=== PATIENT | female | born 1960 | race Caucasian/White ===

== ENCOUNTER → 2019-11-30 08:15 | Outpatient (CLI) | payer OTHER, SELFPAY ==
--- NOTE | ~2019-11-30 | DEXA_ITS ---
Bone Density Report Name: Denia Olson Age: 59 Sex: Female Ethnicity: White Date of : 1960 Indication: postmenopausal; screening for osteoporosis; hysterectomy; Referring Provider: NELLA PAPPAS Study: Bone densitometry was performed. Exam Date: November 30, 2019 Accession number: [id number] Bone Density: Region BMD T-score Z-score Classification AP Spine (L1-L4) 1.204 1.4 2.9 Normal Femoral Neck (Left) 0.866 0.2 1.5 Normal Total Hip (Left) 0.944 0.0 1.0 Normal Femoral Neck (Right) 0.834 -0.1 1.2 Normal Total Hip (Right) 0.940 0.0 1.0 Normal Total Hip Mean 0.942 0.0 1.0 Normal World Health Organization criteria for BMD impression classify patients as: Normal (T-score at or above -1.0), Osteopenia (T-score between -1.0 and -2.5), or Osteoporosis (T-score at or below -2.5). 10-year Fracture Risk: FRAX not reported because: All T-scores for Spine Total, Hip Total, Femoral Neck at or above -1.0 Clinical Information Provided by Patient: Has used the following medications: Vitamin D Has the following medical conditions: Hysterectomy Patient maximum height was 65 Menopause Age: 41 No regular weight bearing exercise Drinks caffeinated beverages Onset of menses at age 11 Number of children 2 Impression: The patient has normal bone mass. Discussion: BONE DENSITY IS ABOVE THE MINIMUM DESIRABLE LEVEL AT ALL SKELETAL SITES TESTED. This patient?s bone mineral density is above the minimum desirable level (T-score -1.0 or better) at all sites measured. The patient should follow a healthful lifestyle (good nutrition with adequate calcium and vitamin D, and appropriate weight-bearing exercise). Follow-Up: Consider repeating this study in 5 years or sooner if there is some new clinical indication. Reported by: NORMAN on 11/30/2019 8:53:00 AM. Reviewed, dictated and finalized at location AJose Raul BRANDON
--- NOTE | ~2019-11-30 | US_ITS ---
US abdomen complete DATE: 11/30/2019 08:40 INDICATION: Liver disease, renal disease TECHNIQUE: Real time imaging of the complete abdomen COMPARISON: None FINDINGS: There is hepatic steatosis. There is limited visualization of the pancreas due to interfer ence from bowel gas. No hepatic space-occupying mass lesion is evident. Normal hepatic portal venous flow direction. The gallbladder is surgically absent. The common bile duct measures 4 mm, within normal limits. The right kidney measures 10.5 cm approximate length, the left kidney approximately 9 cm length. No r enal mass lesion or hydronephrosis. Splenomegaly. The abdominal aorta and inferior vena cava appear unremarkable where visible. IMPRESSION: Hepatic steatosis Splenomegaly Reviewed, dictated and finalized at Location A. Reviewed, dictated and finalized at location B.
== END ==
PROVIDERS: PCP Emergency Medicine; Visit Provider Emergency Medicine
DX: Z78.0 Asymptomatic menopausal state (principal); K76.0 Fatty (change of) liver, not elsewhere classified
CPT/HCPCS: 76700; 77080

== ENCOUNTER 2023-04-07 10:42 | Inpatient (IN) | payer BC, SELFPAY ==
[2023-04-07] VITALS (31 sets, daily range): BP systolic 102–139; BP diastolic 63–89; PULSE 81–147; RESP 11–21; TEMP 36.4–37.1; O2SAT 96–100; BMI 32.3
--- NOTE | ~2023-04-07 | XR_ITS ---
Portable chest x-ray Comparison: None Clinical History: Tachycardia Findings: Lungs are clear, without focal consolidation or pleural effusion. Cardiomediastinal silho uette is unremarkable. Bones and soft tissues are unremarkable. Impression: Normal chest. Reviewed, dictated and finalized at location . Impression: Normal chest.
--- NOTE | 2023-04-07 10:44 | ECG_ITS ---
Measurements Intervals [place] Rate: 126 P: [place]: 0 QRS: -19 QRSD: 89 T: 25 QT: 287 QTc: 416 Interpretive Statements ATRIAL FIBRILLATION WITH RAPID VENTRICULAR RESPONSE BORDERLINE R WAVE PROGRESSION, ANTERIOR LEADS ABNORMAL ECG NO PREVIOUS ECG AVAILABLE FOR COMPARISON Electronically Signed On 04-07-2023 12:16:08 CDT by Buzz Escobedo D.O.
--- NOTE | 2023-04-07 11:05 | ED.GENADULT ---
HPI - General Adult General Chief complaint: Recheck/Abnormal Lab/Rx Stated complaint: abnormal EKG Time Seen by Provider: 04/07/23 11:04 Source: patient and family Limitations: no limitations History of Present Illness HPI narrative: 62 years old white female went to her family physician today for regular checkup, asymptomatic, found to have A-fib with RVR. Referred to the emergency room for further evaluation. Patient denies any lightheadedness, headache, shortness of breath, chest pain, back pain, palpitation. History of diabetes, hypertension, hyperlipidemia, brain bleed 5 years ago, does not smoke or drink or uses drugs. Related Data Allergies Allergy/AdvReac Type Severity Reaction Status Date / Time No Known Allergies Allergy Verified 04/07/23 10:43 Review of Systems Review of Systems: All systems reviewed & are unremarkable except as noted in HPI and below PMFSH Past Medical History Medical History Anxiety with depression Chronic GERD Diabetes Hemorrhagic stroke Hyperlipidemia Hypertension Surgical History Surgical History H/O: hysterectomy Hx of cholecystectomy Family History Family History Other Diabetes mellitus Heart disease Hypertension Lung cancer Social History Social History Social History: lives with and has 2 children. retired from commercial ins full code Exam Narrative: General appearance: Well-developed, well-nourished Skin: Normal color Head: Normocephalic, nontraumatic Eyes: Clear conjunctiva ENT: Oropharynx normal, ears normal, nose normal Neck: Supple, nontender Chest and respiratory: Airway patent, no respiratory distress, no accessory muscle use Heart: Tachycardia, irregular irregularity Abdomen: Soft, nontender, no organomegaly, quiet bowel sounds Vascular: Normal peripheral pulses, normal capillary refill. Musculoskeletal: Normal range of motion, nontender back Neurologic: Alert and oriented ?3, [employer] is normal as tested, no gross motor deficit Course Reevaluation(s) Reevaluation #1: Patient still asymptomatic, denied any new symptoms compared to on arrival to the ED Date: 04/07/23 Time: 16:08 Vital Signs Vital signs: Vital Signs Temperature 36.6 C 04/07/23 10:44 Pulse Rate 123 H 04/07/23 10:44 Respiratory Rate 20 04/07/23 10:44 Blood Pressure 137/78 04/07/23 10:44 Pulse Oximetry 98 04/07/23 10:44 Oxygen Delivery Room Air 04/07/23 10:44 Temperature 36.7 C 04/07/23 15:00 Pulse Rate 119 H 04/07/23 15:18 Respiratory Rate 17 04/07/23 15:18 Blood Pressure 119/81 04/07/23 15:00 Pulse Oximetry 96 04/07/23 15:00 Oxygen Delivery Room Air 04/07/23 10:44 Medical Decision Making MDM Narrative Medical decision making narrative: Patient is 62 years old white female referred to the emergency room by her family physician with new diagnosis of A-fib with RVR. Patient is asymptomatic. Differential diagnosis, hyperthyroidism, electrolyte imbalance, coronary artery disease, stress, depression Physical examination was unremarkable except for tachycardia, irregular irregularity, Cardizem bolus 10 mg, drip 5 mg/h started, EKG on arrival showed A-fib with RVR at 126 bpm, no old EKG for comparison, chest x-ray showed no acute abnormality, work-up today include CBC, CMP, troponin, TSH showed potassium of 5.2, creatinine of 1.3, glucose of 179, BNP of 1050. Patient to be admitted to the hospitalist, still asymptomatic. Justin
[2023-04-07 11:39] LABS: Basophils Percent Auto 0.6 % (0.2-1.2); Eosinophils Absolute Auto 0.3 K/mm3 (0-0.3); Eosinophils Percent Auto 4.7 % (0-4.4); Hemoglobin 13.3 g/dL (12.0-15.0); Immature Granulocyte Absolute 0.02 K/mm3 (0.00-0.031); Immature Granulocyte Percent A 0.3 % (0-0.5); Lymphocytes Absolute Auto 1.29 K/mm3 (0.9-3.2); Lymphocytes Percent Auto 18.8 % (18.3-44.2); Mean Corpuscular HGB Conc 33.3 g/dl (32-36); Mean Corpuscular Hemoglobin 28.3 pg (26-34); Mean Corpuscular Volume 85.1 fl (80-100); Mean Platelet Volume 10.3 fl (7.4-10.4); Monocytes Absolute Auto 0.6 K/mm3 (0.1-0.6); Neutrophils Absolute Auto 4.6 K/mm3 (1.3-6.7); Neutrophils Percent Auto 67.6 % (45.5-73.1); Platelet Count Result 173 k/mm3 (150-375); Red Cell Distribution Width 13.4 % (11.5-14.5); White Blood Count 6.9 K/mm3 (4.5-10.0)
[2023-04-07 11:43] LABS: Prothrombin Time 13.5 Seconds (11.1-14.7)
[2023-04-07 11:44] LABS: Alanine Aminotransferase 38 U/L (6-35); Albumin Level 4.5 g/dL (3.5-5.1); Alkaline Phosphatase 101 U/L (38-126); Anion Gap 15 mmol/L (8-16); Aspartate Amino Transferase 34 U/L (14-36); Bilirubin,Total 0.6 mg/dL (0.2-1.3); Blood Urea Nitrogen 25 mg/dL (7-17); Calcium 9.4 mg/dL (8.4-10.2); Carbon Dioxide 17 mmol/L (22-30); Chloride 108 mmol/L (98-107); Estimated CRCL calculation 42 ml/min; Estimated Glomerular Filt Rate 41; Glucose 179 mg/dL (65-110); Potassium 5.2 mmol/L (3.4-5.0); Sodium 140 mmol/L (137-145)
[2023-04-07] MEDS: ENOXAPARIN 80 MG/0.8 ML SYRINGE 90 MG SUB-Q (11:54)
[2023-04-07] MEDS: dilTIAZem HCl INJ 25 MG/5 ML VIAL 10 MG IV PUSH (11:55)
[2023-04-07 11:56] LABS: NT Pro B Type Natriuretic Pept 1050 pg/mL (19.9-100); Troponin I < 0.012 ng/mL (0.000-0.034)
[2023-04-07] MEDS: dilTIAZem 100 MG/100 ML 100 MG/100 ML BAG IV CONT (11:57)
--- NOTE | 2023-04-07 12:59 | PM.IMHP ---
H&P: HPI History of Present Illness Date/Time: 04/07/23 12:59 Chief Complaint: Abnormal EKG Narrative: This is a 62-year-old female patient who has a history of hypertension. The patient was at her primary care doctor's office today for a physical and it was noted that the patient had an abnormal heart rate. The patient has no prior history of having any arrhythmias. She has not had any complaints. No chest pain or palpitations. No fever chills. No nausea vomiting or diarrhea. Her potassium was 5.2. Chloride 108. BUN 25 creatinine 1.3. Glucose 179. BnP is noted to be 1050. The patient has no prior history of congestive heart failure. Chest x-ray was read as normal chest. The patient was given Cardizem IV push and then started on a Cardizem drip. She was also given subcu Lovenox. The patient has a history of having a hemorrhagic CVA 5 years ago. The patient's has bled score is a 2. Her Aden Vasc score 2 is a 4. Cardiology has been consulted. The patient is being admitted to inpatient status on the date of service of Review of Systems Review of Systems: All systems reviewed & are unremarkable except as noted in HPI and below Constitutional: Constitutional: Reports as per HPI and Reports no additional constitutional complaints Eyes: Eyes: Reports as per HPI and Reports no additional eye complaints ENT: Reports system reviewed and no additional complaints, except as documented and Reports Normal hearing present Cardiovascular: Cardiovascular: Reports no additional cardiovascular complaints Respiratory: Respiratory: Reports no additional respiratory complaints and Reports no additional respiratory complaints Gastrointestinal: Gastrointestinal: Reports as per HPI and Reports no additional gastrointestinal complaints Musculoskeletal: Musculoskeletal: Reports no additional musculoskeletal complaints Integumentary/Breasts: Skin/Breast: Reports system reviewed and no additional complaints, except as docu and Reports as per HPI Neurologic: Reports system reviewed and no additional complaints, except as documented, Reports as per HPI and Reports Normal hearing present Psychiatric: Psychiatric: Reports no additional psychiatric complaints and Reports as per HPI Endocrine: Endocrine: Reports no additional endocrine complaints Hematologic/Lymphatic: Hematologic/Lymphatic: Reports no additional hematologic/lymphatic complaints Allergic/Immunologic: Allergic/Immunologic: Reports no additional allergic/immunologic complaints [facility] Past Medical History Medical History Anxiety with depression Chronic GERD Diabetes Hemorrhagic stroke Hyperlipidemia Hypertension Surgical History Surgical History H/O: hysterectomy Hx of cholecystectomy Family History Family History Other Diabetes mellitus Heart disease Hypertension Lung cancer Social History Social History (Updated 04/07/23 @ 16:42 by Martha Bob NP) Social History: She lives with her and has 2 children. She is retired from commercial insurance. Code status full code Smoking status: Never smoker Meds Home Medications and Allergies Allergies Allergy/AdvReac Type Severity Reaction Status Date / Time No Known Allergies Allergy Verified 04/07/23 10:43 Vital Signs Vital Signs - 24 hr 04/07/23 10:44 04/07/23 11:57 04/07/23 10:58 Temperature 36.6 C Pulse Rate 123 H 128 H 128 H Respiratory Rate 20 16 Blood Pressure 137/78 134/81 Pulse Oximetry 98 Oxygen Delivery Room Air 04/07/23 11:00 04/07/23 11:17 04/07/23 11:33 Temperature Pulse Rate 147 H 115 H 124 H Respiratory Rate 16 14 16 Blood Pressure Pulse Oximetry Oxygen Delivery 04/07/23 11:49 04/07/23 11:50 04/07/23 12:03 Temperature Pulse Rate 131 H 137
[2023-04-07 17:22] LABS: Anion Gap 13 mmol/L (8-16); Blood Urea Nitrogen 24 mg/dL (7-17); Carbon Dioxide 19 mmol/L (22-30); Chloride 108 mmol/L (98-107); Estimated CRCL calculation 49 ml/min; Estimated Glomerular Filt Rate 50; Glucose 194 mg/dL (65-110); Potassium 4.6 mmol/L (3.4-5.0); Sodium 140 mmol/L (137-145)
--- NOTE | 2023-04-07 18:11 | ADMGEN ---
This patient, Denia Olson, was admitted to IMU Room 209-01. Patient/family oriented to hospital policies and general routines including ID bracelet, bed and alarms, visiting hours, pain management, procedures, bathroom and other care routines, personal items, smoking policy, room service/diet, and visiting hours. Information on how to activate the Rapid Response Team has been discussed. Patient/Family are encouraged to report perceived risks to care and to ask questions if they do not understand what they are told or what they should do.
[2023-04-07 18:43] LABS: Troponin I < 0.012 ng/mL (0.000-0.034)
[2023-04-07 20:31] LABS: Glucose Point of Care 146 mg/dl (65-105)
[2023-04-07] MEDS: PANTOPRAZOLE SODIUM IV 40 MG VIAL IV PUSH (21:18)
[2023-04-07] MEDS: dilTIAZem 100 MG/100 ML 100 MG/100 ML BAG 10 MG IV CONT (22:30)
[2023-04-08] VITALS (17 sets, daily range): BP systolic 101–129; BP diastolic 58–67; PULSE 61–106; RESP 14–20; TEMP 36.4–36.8; O2SAT 96–99
--- NOTE | 2023-04-08 | ECHO_ITS ---
Patient Info Name: Denia Olson Age: 62 years : 1960 Gender: Female Ht: 64 in Wt: 190 lbs BSA: 2.01 m2 HR: 95 bpm BP: 111 / 67 mmHg Heart Rhythm: Sinus Rhythm Technical Quality: Fair Exam Date: 04/08/2023 8:22 AM Exam Location: [facility] Pulmonary Patient Status: Inpatient Admit Date: 04/07/2023 Staff Ordering Physician: Martha Bob NP Area Field Person: Bre Carpio RDCS Attending Provider: Tiara Beckford DO Referring Physician: Lisbeth GREEN; Exam Type: CA echo doppler color flow Study Info Indications - new onset of Afib Complete two-dimensional, color flow and Doppler transthoracic echocardiogram is performed. Summary 1. Complete two-dimensional, color flow and Doppler transthoracic echocardiogram is performed. 2. Normal left ventricular size thickness and systolic function without wall motion abnormality. 3. Normal diastolic function. 4. Mild left atrial enlargement. 5. Trivial mitral regurgitation. Left Ventricle Left ventricular chamber dimension is normal. Left ventricular systolic function is normal, estimated at 50-55%. The left ventricular diastolic function is normal. Right Ventricle Right ventricular chamber dimension is normal. Left Atria Left atrial chamber dimension is mildly enlarged. Right Atria Right atrial chamber dimension is normal. Aortic Valve The aortic valve is normal. Pulmonic Valve The pulmonic valve is normal. Mitral Valve The mitral valve has normal leaflets. There is trace mitral valve regurgitation. Tricuspid Valve The tricuspid valve leaflets are normal. Pericardium/Pleural The pericardium appears normal. Aorta The aortic root size at the sinus of Valsalva is normal. Left Ventricular Outflow Tract Name Value Normal LVOT 2D LVOT Diameter 2.0 cm LVOT Doppler LVOT Peak Gradient 3 mmHg LVOT Mean Gradient 2 mmHg LVOT VTI 19 cm LVOT VTI/AV VTI Ratio 0.7 LVOT Stroke Volume 56 ml LVOT CO 4.2 l/min LVOT CI 2.1 l/min/m2 Pulmonic Valve Name Value Normal RVOT Doppler RVOT Peak Gradient 1 mmHg PV Doppler PV Peak Gradient 4 mmHg Mitral Valve Name Value Normal MV Doppler MV Decel Reeves 619 cm/s2 MV PHT 46 ms MV Area (PHT) 4.7 cm2 4.0-5.0 MV Diastolic Function
[2023-04-08 05:40] LABS: Basophils Percent Auto 0.6 % (0.2-1.2); Eosinophils Absolute Auto 0.3 K/mm3 (0-0.3); Eosinophils Percent Auto 4.8 % (0-4.4); Hematocrit 36.8 % (37.0-47.0); Immature Granulocyte Absolute 0.01 K/mm3 (0.00-0.031); Immature Granulocyte Percent A 0.2 % (0-0.5); Lymphocytes Absolute Auto 1.37 K/mm3 (0.9-3.2); Lymphocytes Percent Auto 26.2 % (18.3-44.2); Mean Corpuscular HGB Conc 32.6 g/dl (32-36); Mean Corpuscular Hemoglobin 27.9 pg (26-34); Mean Corpuscular Volume 85.6 fl (80-100); Mean Platelet Volume 10.6 fl (7.4-10.4); Monocytes Absolute Auto 0.5 K/mm3 (0.1-0.6); Monocytes Percent Auto 9.9 % (2.6-8.5); Neutrophils Absolute Auto 3.1 K/mm3 (1.3-6.7); Neutrophils Percent Auto 58.3 % (45.5-73.1); Platelet Count Result 152 k/mm3 (150-375); Red Cell Distribution Width 13.4 % (11.5-14.5); White Blood Count 5.2 K/mm3 (4.5-10.0)
[2023-04-08 05:46] LABS: Hemoglobin A1C 9.6 % (<5.7)
[2023-04-08 06:07] LABS: Alanine Aminotransferase 30 U/L (6-35); Albumin Level 3.9 g/dL (3.5-5.1); Alkaline Phosphatase 73 U/L (38-126); Anion Gap 10 mmol/L (8-16); Aspartate Amino Transferase 28 U/L (14-36); Bilirubin,Total 0.6 mg/dL (0.2-1.3); Blood Urea Nitrogen 21 mg/dL (7-17); Calcium 8.5 mg/dL (8.4-10.2); Carbon Dioxide 22 mmol/L (22-30); Chloride 107 mmol/L (98-107); Estimated CRCL calculation 48 ml/min; Estimated Glomerular Filt Rate 50; Glucose 193 mg/dL (65-110); Magnesium 1.3 mg/dL (1.6-2.3); Potassium 4.3 mmol/L (3.4-5.0); Sodium 139 mmol/L (137-145)
[2023-04-08 08:40] LABS: Glucose Point of Care 177 mg/dl (65-105)
--- NOTE | 2023-04-08 08:59 | ECG_ITS ---
Measurements Intervals [place] Rate: 70 P: 8 NM: 156 QRS: -10 QRSD: 98 T: 31 QT: 396 QTc: 428 Interpretive Statements SINUS RHYTHM NORMAL ECG COMPARED TO ECG 04/07/2023 10:48:35 SINUS RHYTHM NOW PRESENT Electronically Signed On 04-08-2023 19:31:00 CDT by Buzz Escobedo D.O.
[2023-04-08] MEDS: dilTIAZem 100 MG/100 ML 100 MG/100 ML BAG 10 MG IV CONT (09:00)
[2023-04-08] MEDS: buPROPion HCL XL (24 HR) 150 MG TABCR 300 MG PO (09:01)
[2023-04-08] MEDS: ATORVASTATIN 10 MG TABLET PO (09:01)
[2023-04-08] MEDS: GLIMEPIRIDE 2 MG TABLET PO (09:01)
[2023-04-08] MEDS: PANTOPRAZOLE SODIUM IV 40 MG VIAL IV PUSH ×2 (09:02→20:46)
[2023-04-08] MEDS: ESCITALOPRAM OXALATE 10 MG TABLET PO (09:02)
--- NOTE | 2023-04-08 11:43 | PM.IMPN ---
Progress Note: A&P Assessment and Plan (1) Atrial fibrillation with rapid ventricular response: Code(s): I48.91 - Unspecified atrial fibrillation Status: Acute Assessment and Plan: The patient was given a dose of Lovenox in the emergency room. She was started on a Cardizem drip. An echo has been ordered. Cardiology has been consulted. The patient has a checked fast score between 4-5 and has a has bled score of 2. The patient has had a history of having a hemorrhagic bleed approximately 5 years ago. The patient was given a 1 time dose of Lovenox. Further recommendation from Cardiology for anticoagulation. (2) Chronic GERD: Code(s): K21.9 - Gastro-esophageal reflux disease without esophagitis Status: Acute Assessment and Plan: IV pantoprazole (3) Anxiety with depression: Code(s): F41.8 - Other specified anxiety disorders Status: Acute Assessment and Plan: Continue with home medications. (4) Hyperlipidemia: Code(s): E78.5 - Hyperlipidemia, unspecified Status: Acute Assessment and Plan: Continue with home medications. (5) Diabetes: Code(s): E11.9 - Type 2 diabetes mellitus without complications Status: Acute Assessment and Plan: Accu-Cheks AC and HS with sliding scale insulin. Check A1c. (6) Hypertension: Code(s): I10 - Essential (primary) hypertension Status: Acute Assessment and Plan: Patient is on a Cardizem drip. Continue to monitor her blood pressure make consider holding home medications. Subjective Date/time seen: 04/08/23 11:43 Interval history: No new complaints Exam Const: General: cooperative, healthy appearing, comfortable, no acute distress, well developed, alert, awake, Physically active, average body habitus and well nourished Nutritional Appearance: average body habitus and well nourished Orientation/consciousness: oriented to person, oriented to place, oriented to time and patient oriented x3 Limitations: no limitations HENMT: Head: normal to inspection, No palpable skull fracture present, normocephalic and atraumatic Ears: hearing grossly normal bilaterally and external ears normal Face/Nose/Sinus: Normal external nose present and Normal nares present Eyes: General: appearance normal, both eyes and all related structures Alignment and Position: alignment normal Periorbital: periorbital findings normal Eyelids: eyelids normal Sclera: sclerae normal Pupils: Equal, round and reactive pupils present EOM: EOMs intact bilaterally Neck: Neck: normal visual inspection, full ROM, no lymphadenopathy, trachea midline and supple Chest: Chest palpation & inspection: normal inspection of the chest Resp: Effort & Inspection: normal respiratory effort Auscultation: clear to auscultation bilaterally Cardio: Palpation: normal PMI Rate: tachycardic Rhythm: abnormal rhythm Heart sounds: S1 normal heart sound present and S2 normal heart sound present Peripheral pulses: Peripheral pulses 2+ throughout GI: Inspection: normal to inspection Auscultation: normal bowel sounds Rectal Exam: deferred : General: Yes no CVA tenderness Back/Spine/Pelvis: Back: no CVA tenderness Cervical Spine: cervical ROM normal Thoracic/Lumbar Spine: thoracic and lumbar spine normal to inspection Pelvis: no pain with anterior-posterior compression Skin: General skin exam: normal color Lesions: no lesions Rashes: no rashes Trauma: no lacerations or abrasions Wounds: no wounds Hair: normal Nails: normal Neuro: General: oriented to person, oriented to place, oriented to time and patient oriented x3 Cranial nerves: Yes Equal, round and reactive pupils present and Yes Normal hearing present Cognition (Neuro): normal cognition Speech: normal speech Gait exam (Neuro): Normal gait present Motor exam (neuro): 5/5 motor strength present throughout Sensory Exam: normal sensation Extrem: General: normal to inspec
[2023-04-08] MEDS: INSULIN ASPART (*BKC) 100 UNITS/ML SUB-Q ×2 (12:04→20:42)
[2023-04-08] MEDS: MAGNESIUM SULF 2 GM/WATER 50ML 2 GM/50 ML BAG IVPB (12:05)
[2023-04-08 12:39] LABS: Glucose Point of Care 219 mg/dl (65-105)
--- NOTE | 2023-04-08 13:04 | PM.CNCAR ---
Assessment and Plan Assessment and plan (1) Atrial fibrillation with rapid ventricular response: Code(s): I48.91 - Unspecified atrial fibrillation Status: Acute Plan 62-year-old lady with hypertension admitted to the hospital with newly recognized atrial fibrillation. She has paroxysmal atrial fib with which she is completely asymptomatic and unaware of her arrhythmia. She normally takes amlodipine and lisinopril for hypertension. She is currently being treated with intravenous diltiazem. At this point I would recommend discontinuing this and she is back in sinus rhythm. I am going to start sotalol treatment for her atrial fibrillation in hopes of stabilizing this and keeping her in sinus rhythm. She has an absolute contraindication to systemic anticoagulation and this is of course not an option for her. I did mention at the time of this consultation that she would be a reasonable candidate to consider for a left atrial appendage occlusion procedure and that we would potentially arrange for her to see a structural insurance commissioner elsewhere in the future. The echocardiogram of course from this morning will be reviewed. I will follow her arrhythmia with you while she is in the hospital and after discharge as well. We will keep her in the hospital probably until sometime Tuesday because of the new prescription of sotalol to follow her QT interval. Gaudencio Torres MD [facility] History of Present Illness History of Present Illness Consult date/time: 04/08/23 13:04 Reason For Visit: A-alba w/RVR, new Narrative: This is a 62-year-old woman I am seeing at the request of the hospitalist because of atrial fibrillation. She is unknown to me prior to this encounter. The patient is asymptomatic and feels well she does not offer any physical complaints of any kind. She was seen as a routine office appointment by her primary care provider yesterday. According to the record it was noted she was in atrial fibrillation on physical exam. An ECG was apparently done to confirm this and because of that she was sent to the emergency department for evaluation and was subsequently admitted to the hospital. Despite the fact that she had AFib with a rather rapid ventricular response she was unaware of it and asymptomatic of it. She denies specifically being aware of any palpitations shortness of breath chest pain orthopnea PND or edema she has never had a syncopal episode. She was placed of course on some intravenous diltiazem which did provide rate control and at this moment she is back in sinus rhythm spontaneously and does not have any other complaints her electrocardiogram in sinus rhythm looks unremarkable. An echocardiogram has been ordered the results of which are still pending she reports a history of hypertension and a history of non insulin-dependent diabetes no history of previous HI or coronary artery disease. Importantly she does have a history of a hemorrhagic stroke which occurred about 5 years ago she said she was hospitalized with a severe intense headache was taken to [facility] where she was treated conservatively she states the bleeding did stop and no procedure or operation was necessary to treat this. She states that the principal symptom she had a stroke in addition to intense headache was difficulty reading and finding the correct words to say and this reading by the written word that has improved since the procedure and she has not had any ongoing neurological debility. Review of Systems Constitutional: Constitutional: Reports no additional constitutional complaints Eyes: Eyes: Reports no additional eye complaints ENT: Reports system reviewed and no additional complaints, except as documented Cardiovascular: Cardiovascular: Reports no additional cardiovascular complaints Respiratory: Respiratory: Reports no additional respiratory complaints Gastrointestinal: Gastrointestinal: Reports no additional gastrointestinal com
[2023-04-08] MEDS: SOTALOL HCL 80 MG TABLET PO ×2 (13:28→20:46)
--- NOTE | 2023-04-08 14:30 | ECG_ITS ---
Measurements Intervals [place] Rate: 71 P: 11 [place]: 161 QRS: -12 QRSD: 97 T: 30 QT: 385 QTc: 421 Interpretive Statements SINUS RHYTHM DELAYED PRECORDIAL R/S TRANSITION BORDERLINE ECG COMPARED TO ECG 04/08/2023 09:40:21 NO SIGNIFICANT CHANGES Electronically Signed On 04-08-2023 20:01:53 CDT by Buzz Escobedo D.O.
[2023-04-08 16:59] LABS: Glucose Point of Care 184 mg/dl (65-105)
[2023-04-08 20:23] LABS: Glucose Point of Care 214 mg/dl (65-105)
--- NOTE | 2023-04-08 22:01 | ECG_ITS ---
Measurements Intervals [place] Rate: 64 P: 11 [place]: 141 QRS: -5 QRSD: 101 T: 29 QT: 430 QTc: 445 Interpretive Statements SINUS RHYTHM NORMAL ECG COMPARED TO ECG 04/08/2023 14:38:46 NO SIGNIFICANT CHANGES Electronically Signed On 04-09-2023 17:22:01 CDT by Buzz Escobedo D.O.
[2023-04-09] VITALS (7 sets, daily range): BP systolic 132–133; BP diastolic 61–67; PULSE 65–79; RESP 12–15; TEMP 36.3–36.4; O2SAT 97–99
--- NOTE | 2023-04-09 08:38 | PM.PNCARD ---
Progress Note: A&P Assessment and Plan (1) Atrial fibrillation with rapid ventricular response: Code(s): I48.91 - Unspecified atrial fibrillation Status: Acute Plan This is a 62-year-old lady with hypertension and paroxysmal atrial fibrillation with which she appears to be asymptomatic. Current plan is to treat her with sotalol and hope that the beta-ugo effect of this will also effectively manage her hypertension. For the time being I have therefore discontinue her amlodipine and lisinopril. Echocardiogram did not show any evidence of significant structural heart disease her left ventricle looks normal in she has a trivial amount of mitral regurgitation. She should therefore be at very low risk for proarrhythmia. As I stated in my note she has an absolute contraindication to systemic anticoagulation. I believe she can be discharged today I will follow her up in my office and assess her hemodynamics, rhythm and discuss the option of left atrial appendage occlusion procedure given her contraindication to anticoagulation. Gaudencio Torres MD [facility] Subjective Date/time seen: Date of service: 04/09/23 08:38 Interval history: Follow-up visit in this 62-year-old lady with: Asymptomatic paroxysmal atrial fibrillation. Started the patient on sotalol in the hospital did in hopes of maintaining sinus rhythm. For the time being her other antihypertensives have been discontinued. She is feeling well this morning asymptomatic and would like to be discharged. Exam Const: General: comfortable and no acute distress Other: Pleasant healthy-appearing lady no apparent distress HENMT: Mouth: Yes moist mucous membranes Eyes: Sclera: sclerae normal Neck: Neck: supple and no JVD Resp: Effort & Inspection: normal respiratory effort Auscultation: clear to auscultation bilaterally Cardio: Rate: regular rate Rhythm: regular rhythm Other: No murmur no gallop GI: GI Palp: Yes Soft to palpation Auscultation: normal bowel sounds Skin: General skin exam: normal color Neuro: Other: Alert and oriented x3 Extrem: Other: No edema, good distal perfusion Objective Data Vital Signs Vital Signs: Vital Signs - 24 hr 04/08/23 09:00 04/08/23 12:00 04/08/23 13:28 Temperature 36.6 C Pulse Rate 78 75 76 Respiratory Rate 14 Blood Pressure 120/59 L Pulse Oximetry 98 Oxygen Delivery 04/08/23 10:00 04/08/23 12:00 04/08/23 16:00 Temperature 36.8 C Pulse Rate 71 75 69 Respiratory Rate 16 Blood Pressure 114/65 Pulse Oximetry 98 Oxygen Delivery 04/08/23 14:00 04/08/23 16:00 04/08/23 18:00 Temperature Pulse Rate 74 68 69 Respiratory Rate Blood Pressure Pulse Oximetry Oxygen Delivery 04/08/23 20:00 04/08/23 20:46 04/08/23 23:49 Temperature 36.4 C 36.4 C L Pulse Rate 71 69 61 Respiratory Rate 16 16 Blood Pressure 129/66 126/62 Pulse Oximetry 99 96 Oxygen Delivery 04/08/23 20:00 04/08/23 22:00 04/08/23 20:00 Temperature Pulse Rate 70 65 Respiratory Rate Blood Pressure Pulse Oximetry Oxygen Delivery Room Air 04/09/23 00:00 04/09/23 00:00 04/09/23 02:00 Temperature Pulse Rate 65 67 Respiratory Rate Blood Pressure Pulse Oximetry Oxygen Delivery Room Air 04/09/23 04:00 04/09/23 04:00 04/09/23 04:00 Temperature 36.3 C L Pulse Rate 67 66 Respiratory Rate 15 Blood Pressure 133/67 Pulse Oximetry 99 Oxygen Delivery Room Air 04/08/23 21:30 04/09/23 06:00 04/09/23 08:00 Temperature 36.4 C Pulse Rate 65 66 Respiratory Rate 12 Blood Pressure 132/61 Pulse Oximetry 97 97 Oxygen Delivery Room Air Intake/Output Intake/Output: Intake & Output 04/06/23 04/07/23 04/08/23 04/09/23 23:59 23:59 23:59 23:59 Intake Total 2030 360 Output Total 400 1100 Balance -400 930 360 Meds/Results Medications: Active Medications Generic Name Dose Route St
[2023-04-09] MEDS: PANTOPRAZOLE SODIUM IV 40 MG VIAL IV PUSH (09:16)
[2023-04-09] MEDS: ATORVASTATIN 10 MG TABLET PO (09:16)
[2023-04-09] MEDS: buPROPion HCL XL (24 HR) 150 MG TABCR 300 MG PO (09:16)
[2023-04-09] MEDS: SOTALOL HCL 80 MG TABLET PO (09:16)
[2023-04-09] MEDS: GLIMEPIRIDE 2 MG TABLET PO (09:16)
[2023-04-09 09:32] LABS: Glucose Point of Care 366 mg/dl (65-105)
--- NOTE | 2023-04-09 10:23 | ECG_ITS ---
Measurements Intervals [place] Rate: 64 P: 3 MO: 162 QRS: -20 QRSD: 94 T: 6 QT: 427 QTc: 441 Interpretive Statements SINUS RHYTHM DELAYED PRECORDIAL R/S TRANSITION BORDERLINE T WAVE ABNORMALITY- INFERIOR LEADS BORDERLINE ECG COMPARED TO ECG 04/08/2023 14:38:46 NO SIGNIFICANT CHANGES Electronically Signed On 04-09-2023 11:04:24 CDT by Buzz Escobedo D.O.
--- NOTE | 2023-04-09 11:26 | PM.DS ---
DS: Admitting Diagnosis Discharge Date April 09, 2023 Admitting Diagnosis AFib DS: Discharge Diagnosis Discharge Diagnosis (1) Atrial fibrillation with rapid ventricular response: Code(s): I48.91 - Unspecified atrial fibrillation Status: Acute Assessment and Plan: Sotalol on discharge (2) Chronic GERD: Code(s): K21.9 - Gastro-esophageal reflux disease without esophagitis Status: Acute Assessment and Plan: IV pantoprazole (3) Anxiety with depression: Code(s): F41.8 - Other specified anxiety disorders Status: Acute Assessment and Plan: Continue with home medications. (4) Hyperlipidemia: Code(s): E78.5 - Hyperlipidemia, unspecified Status: Acute Assessment and Plan: Continue with home medications. (5) Diabetes: Code(s): E11.9 - Type 2 diabetes mellitus without complications Status: Acute Assessment and Plan: Accu-Cheks AC and HS with sliding scale insulin. Check A1c. (6) Hypertension: Code(s): I10 - Essential (primary) hypertension Status: Acute Assessment and Plan: Patient is on a Cardizem drip. Continue to monitor her blood pressure make consider holding home medications. DS: Summary Hospital Course Hospital Course: Patient was admitted for atrial fibrillation with RVR. Medications were adjusted. She will be discharged on sotalol. Some for blood pressure medications have been stopped to avoid the risk of hypotension. Follow with Cardiology. Time Spent with Patient Time attestation: Total time spent providing and/or coordinating discharge services: Exam Const: General: cooperative, healthy appearing, comfortable, no acute distress, well developed, alert, awake, Physically active, average body habitus and well nourished Nutritional Appearance: average body habitus and well nourished Orientation/consciousness: oriented to person, oriented to place, oriented to time and patient oriented x3 Limitations: no limitations HENMT: Head: normal to inspection, No palpable skull fracture present, normocephalic and atraumatic Ears: hearing grossly normal bilaterally and external ears normal Face/Nose/Sinus: Normal external nose present and Normal nares present Eyes: General: appearance normal, both eyes and all related structures Alignment and Position: alignment normal Periorbital: periorbital findings normal Eyelids: eyelids normal Sclera: sclerae normal Pupils: Equal, round and reactive pupils present EOM: EOMs intact bilaterally Neck: Neck: normal visual inspection, full ROM, no lymphadenopathy, trachea midline and supple Chest: Chest palpation & inspection: normal inspection of the chest Resp: Effort & Inspection: normal respiratory effort Auscultation: clear to auscultation bilaterally Cardio: Palpation: normal PMI Rate: tachycardic Rhythm: abnormal rhythm Heart sounds: S1 normal heart sound present and S2 normal heart sound present Peripheral pulses: Peripheral pulses 2+ throughout GI: Inspection: normal to inspection Auscultation: normal bowel sounds Rectal Exam: deferred : General: Yes no CVA tenderness Back/Spine/Pelvis: Back: no CVA tenderness Cervical Spine: cervical ROM normal Thoracic/Lumbar Spine: thoracic and lumbar spine normal to inspection Pelvis: no pain with anterior-posterior compression Skin: General skin exam: normal color Lesions: no lesions Rashes: no rashes Trauma: no lacerations or abrasions Wounds: no wounds Hair: normal Nails: normal Neuro: General: oriented to person, oriented to place, oriented to time and patient oriented x3 Cranial nerves: Yes Equal, round and reactive pupils present and Yes Normal hearing present Cognition (Neuro): normal cognition Speech: normal speech Gait exam (Neuro): Normal gait present Motor exam (neuro): 5/5 motor strength present throughout Sensory Exam: normal sensation Extrem: General: normal to inspection Right upper e
[2023-04-09] MEDS: INSULIN ASPART (*BKC) 100 UNITS/ML SUB-Q (11:43)
--- NOTE | 2023-04-09 11:53 | PC.NURSE ---
[address] Torres to clarify that he is fine with the patient being discharged after only receiving [address] Torres stated he was aware and fine with the patient going home.
[2023-04-09 13:01] LABS: Glucose Point of Care 315 mg/dl (65-105)
== END 2023-04-09 12:56 | disposition home or self-care (01) | DRG 310 ==
LOC: ANHED 16:13 → ANHIMU 17:42
PROVIDERS: Nurse Practitioner; Admitting Provider Student in an Organized Health Care Education/Training Program; Emergency Provider Emergency Medicine; PCP Internal Medicine; Visit Provider Chiropractor
DX: I48.0 Paroxysmal atrial fibrillation (principal); I10 Essential (primary) hypertension; E11.9 Type 2 diabetes mellitus without complications; E78.5 Hyperlipidemia, unspecified; K21.9 Gastro-esophageal reflux disease without esophagitis; F41.9 Anxiety disorder, unspecified; F32.A Depression, unspecified; Z86.73 Personal history of transient ischemic attack (TIA), and cerebral infarction without residual deficits
CPT/HCPCS: 36415; 71045; 80048; 80053; 82948; 83036; 83735; 83880; 84443; 84484; 85025; 85610; 85730; 93005; 93306; 96365; 96366; 96367; 96372; 96375; 96376; 99285; A9270; C9113; G0378; J1650; J1815; J3475

== ENCOUNTER 2023-09-27 17:00 | Inpatient (IN) | payer BC, SELFPAY ==
[2023-09-27] VITALS (14 sets, daily range): BP systolic 123–144; BP diastolic 58–78; PULSE 70–77; RESP 18–28; TEMP 36.5–36.8; O2SAT 88–100; BMI 29.2; BMI 29.4
--- NOTE | ~2023-09-27 | XR_ITS ---
EXAMINATION: XR chest 1V portable DATE: 09/27/2023 18:18 INDICATION: Shortness of breath with exertion. TECHNIQUE: A single frontal view of the chest was obtained. COMPARISON: Chest single view 04/07/2023 FINDINGS: A calcified left lung nodule is consistent with old granulomatous disease. There are patchy airspace opacities in the mid and lower lung zones. No pleural effusion or pneumothorax. The heart s ize is normal. IMPRESSION: 1. Patchy airspace opacities in the mid and lower lung zones, consistent with pneumonia. Reviewed, dictated and finalized at location E. H CLAIM EXAMINER IMPRESSION: 1. Patchy airspace opacities in the mid and lower lung zones, consistent with p neumonia.
--- NOTE | 2023-09-27 17:19 | PC.NURSE ---
Pt placed in room, 2lnc applied. Dr. Froy Leblanc notified of pt SPO2 and new need for oxygen
--- NOTE | 2023-09-27 17:31 | ED.GENADULT ---
HPI - General Adult General Chief complaint: Shortness of Breath/Dyspnea Stated complaint: SOB Time Seen by Provider: 09/27/23 17:13 History of Present Illness HPI narrative: 62 year old female presents emergency department for evaluation of increased shortness of breath that started over the last few days. Patient is not a smoker and denies any prior history of lung disease. Patient states her was diagnosed with meningitis but denies any other sick contacts. Patient denies any headache chest pain or neck pain. Upon arrival to the emergency department patient does have increased work of breathing. Related Data Home Medications Medication Instructions Recorded Confirmed aspirin 81 mg tablet,delayed 81 mg PO DAILY 04/07/23 04/07/23 release (Adult Low Dose Aspirin) atorvastatin 10 mg tablet 10 mg PO DAILY 04/07/23 04/07/23 bupropion HCl 300 mg 24 hr tablet, 300 mg PO DAILY 04/07/23 04/07/23 extended release escitalopram oxalate 10 mg tablet 10 mg PO DAILY 04/07/23 04/07/23 glimepiride 2 mg tablet 2 mg PO DAILY 04/07/23 04/07/23 indomethacin 50 mg capsule 50 mg PO BID 04/07/23 04/07/23 melatonin 5 mg tablet 5 mg PO HS PRN Insomnia 04/07/23 04/07/23 metformin 1,000 mg tablet 1,000 mg PO BID 04/07/23 04/07/23 omeprazole 20 mg capsule,delayed 20 mg PO DAILY 04/07/23 04/07/23 release Allergies Allergy/AdvReac Type Severity Reaction Status Date / Time No Known Allergies Allergy Verified 04/07/23 10:43 Review of Systems Review of Systems: All systems reviewed & are unremarkable except as noted in HPI and below PMFSH Past Medical History Medical History Anxiety with depression Chronic GERD Diabetes Hemorrhagic stroke Hyperlipidemia Hypertension Surgical History Surgical History H/O: hysterectomy Hx of cholecystectomy Family History Family History (Updated 04/07/23 @ 18:42 by Elizabet Dang RN) Mother Lung cancer Mother Diabetes mellitus Father Lung cancer Sibling Heart disease Asthma Other Hypertension Social History Social History (Updated 04/07/23 @ 16:42 by Martha Bob NP) Social History: She lives with her and has 2 children. She is retired from commercial insurance. Code status full code Smoking status: Never smoker Alcohol intake: current Drinks per week: 1 Substance use: never Lack of Transportation: No Lack of Food: Never True Current Housing: I Have Housing Concerned About Future Housing: No Difficulty Paying Gas/Electric Bills: No Difficulty Paying for Meds: No Currently Unemployed: No Education: Associate Degree Difficulty w/ Childcare or Family Care: No Spiritual care concerns: No Exam Narrative: APPEARANCE: Ill-appearing HEAD: normocephalic, atraumatic. EYES: PERRLA/EOMI, conjunctivae clear. NOSE: Normal no drainage EARS:TMS clear with good light reflex. THROAT: Pharynx clear, no exudate. no stridor NECK: Supple. No adenopathy, no masses. RESPIRATORY: wheezing respirations bilaterally CARDIOVASCULAR: Regular rate and rhythm without murmurs rubs or gallops. ABDOMINAL: Soft, nontender, nondistended, normal bowel sounds MUSCULOSKELETAL: Moves all extremities. Strength/ROM intact, No edema, No calf tenderness. NEURO: Alert. Cranial nerves II through XII intact. grossly intact SKIN: Warm, dry. Normal Color PSYCHIATRIC: anxious affect Course Course Emergency Course: 62 old female presenting emergency department for evaluation shortness of breath. Patient was 88% 2 L of oxygen upon arrival to the emergency department. Patient did improve after her breathing treatment. Patient is afebrile with no leukocytosis and a stable hemoglobin. Patient's ABG was not significantly abnormal. Patient has a creatinine of 2.6 of the typical baseline closer 1.3. Patient was influenza A posit
--- NOTE | 2023-09-27 17:32 | ECG_ITS ---
Measurements Intervals [place] Rate: 69 P: 75 [place]: 141 QRS: 7 QRSD: 90 T: 51 QT: 439 QTc: 473 Interpretive Statements SINUS RHYTHM BASELINE ARTIFACT- AVF NORMAL ECG COMPARED TO ECG 04/09/2023 10:37:25 NO SIGNIFICANT CHANGES Electronically Signed On 09-27-2023 20:42:25 FURNITURE DUSTER by Buzz Escobedo D.O.
[2023-09-27] MEDS: ALBUTEROL SULFATE NEB 2.5 MG/3 ML INH INHALATION ×2 (17:40→21:13)
[2023-09-27 18:00] LABS: Alveolar/Arterial O2 Gradient 80.7 mmHg; Base Excess ABG -4.6 mEq/l (+/-2.0); Carboxyhemoglobin 0.5 % THb (0-2.0); Fractional Inspired Oxygen 28 %; HCO3 ABG 18.9 mEq/l (22.0-26.0); Methemoglobin ABG 0.3 %THb (0-1.5); Oxygen Content ABG 15.7 %vol (16.0-22.0); Oxygen Saturation ABG 96.5 % (95.0-100.0); Oxyhemoglobin 93.4 % THb (90.0-100.0); PCO2 ABG 30.4 mmHg (35.0-45.0); PO2 ABG 83.1 mmHg (80.0-100.0); PO2 FiO2 Ratio Arterial Blood 2.97 %; Reduced Hemoglobin 5.8 %THb (0-5.0); Total Hemoglobin 11.9 g/dL (12.0-18.0); pH ABG 7.412 (7.350-7.450)
[2023-09-27 18:03] LABS: Basophils Absolute Auto 0.1 K/mm3 (0.0-0.1); Basophils Percent Auto 0.6 % (0.2-1.2); Eosinophils Percent Auto 0.1 % (0-4.4); Hematocrit 36.4 % (37.0-47.0); Hemoglobin 12.1 g/dL (12.0-15.0); Immature Granulocyte Absolute 0.07 K/mm3 (0.00-0.031); Immature Granulocyte Percent A 0.9 % (0-0.5); Lymphocytes Absolute Auto 0.85 K/mm3 (0.9-3.2); Lymphocytes Percent Auto 10.8 % (18.3-44.2); Mean Corpuscular HGB Conc 33.2 g/dl (32-36); Mean Corpuscular Hemoglobin 28.7 pg (26-34); Mean Corpuscular Volume 86.5 fl (80-100); Mean Platelet Volume 10.8 fl (7.4-10.4); Monocytes Absolute Auto 1.2 K/mm3 (0.1-0.6); Monocytes Percent Auto 15.1 % (2.6-8.5); Neutrophils Absolute Auto 5.7 K/mm3 (1.3-6.7); Neutrophils Percent Auto 72.5 % (45.5-73.1); Platelet Count Result 213 k/mm3 (150-375); Red Blood Count 4.21 M/mm3 (4.2-5.4); Red Cell Distribution Width 13.9 % (11.5-14.5); White Blood Count 7.9 K/mm3 (4.5-10.0)
[2023-09-27 18:03] LABS: Site Drawn LEFT RADIAL
[2023-09-27 18:04] LABS: Device NASAL CANNULA
[2023-09-27 18:11] LABS: Alanine Aminotransferase 28 U/L (6-35); Albumin Level 3.6 g/dL (3.5-5.1); Alkaline Phosphatase 140 U/L (38-126); Anion Gap 17 mmol/L (8-16); Aspartate Amino Transferase 36 U/L (14-36); Bilirubin,Total 1.1 mg/dL (0.2-1.3); Blood Urea Nitrogen 78 mg/dL (7-17); Calcium 9.1 mg/dL (8.4-10.2); Carbon Dioxide 18 mmol/L (22-30); Chloride 101 mmol/L (98-107); Estimated CRCL calculation 21 ml/min; Estimated Glomerular Filt Rate 19; Glucose 234 mg/dL (65-110); Potassium 4.1 mmol/L (3.4-5.0); Sodium 136 mmol/L (137-145)
[2023-09-27 18:16] LABS: INR 1.2; Prothrombin Time 15.2 Seconds (11.1-14.7)
[2023-09-27 18:35] LABS: Anisocytosis 1+ (NORMAL); Platelet Estimate Adequate (Adequate)
[2023-09-27 18:36] LABS: Burr Cells 1+ (NORMAL); Schistocytes None Seen (NORMAL)
[2023-09-27] MEDS: SODIUM CHLORIDE 0.9% IV 1,000 ML 999 ML IV CONT (18:41)
[2023-09-27 19:47] LABS: Influenza A QL RT-PCR Positive (Negative); Influenza B QL RT-PCR Negative (Negative); RSV RNA, RT-PCR Negative (Negative); SARS-CoV-2 RNA PCR Negative (Negative)
--- NOTE | 2023-09-27 20:47 | PM.IMHP ---
H&P: HPI History of Present Illness Date/Time: 09/27/23 20:47 Chief Complaint: Shortness of breath Narrative: This is a 62-year-old female past medical history significant for type 2 diabetes mellitus, chronic GERD, an Allis anxiety disorder with depression, hypertension, dyslipidemia. Patient presents to the emergency room with shortness of breath, in emergency room patient was found to have low pulse ox in the 88 % range require supplemental oxygen. Patient has had poor oral intake, poor appetite, chills, fevers denies any nausea vomiting abdominal pain or diarrhea had productive cough, generalized malaise, fatigue, body aches and pains. Preliminary workup was significant for chest x-ray with infiltrate. Patient tested positive for Influenza type A,tested negative for influenza type B, RSV and Covid. EXAMINATION: XR chest 1V portable DATE: 09/27/2023 18:18 INDICATION: Shortness of breath with exertion. TECHNIQUE: A single frontal view of the chest was obtained. COMPARISON: Chest single view 04/07/2023 FINDINGS: A calcified left lung nodule is consistent with old granulomatous disease. There are patchy airspace opacities in the mid and lower lung zones. No pleural effusion or pneumothorax. The heart size is normal. IMPRESSION: 1. Patchy airspace opacities in the mid and lower lung zones, consistent with pneumonia. Review of Systems Review of Systems: Shortness of breath, cough Constitutional: Constitutional: Reports chills, Reports fatigue, Reports malaise, Reports poor appetite and Reports weakness Eyes: Eyes: Denies change in vision ENT: Denies dysphagia and Denies odynophagia Cardiovascular: Cardiovascular: Denies chest pain, Denies radiating jaw, neck or arm pain and Denies palpitations Respiratory: Respiratory: Reports chest congestion, Reports cough and Reports dyspnea Gastrointestinal: Gastrointestinal: Denies abdominal pain, Denies nausea and Denies vomiting Genitourinary: Genitourinary: Denies dysuria Musculoskeletal: Musculoskeletal: Reports muscle weakness Integumentary/Breasts: Skin/Breast: Denies rash Neurologic: Denies focal weakness and Denies Sensory deficit (Neuro) Psychiatric: Psychiatric: Reports no additional psychiatric complaints and Reports as per HPI Endocrine: Endocrine: Denies cold intolerance, Denies fatigue, Denies flushing, Denies heat intolerance, Denies polyphagia, Denies polydipsia and Denies palpitations Hematologic/Lymphatic: Hematologic/Lymphatic: Reports no additional hematologic/lymphatic complaints and Reports as per HPI Allergic/Immunologic: Allergic/Immunologic: Reports no additional allergic/immunologic complaints and Reports as per HPI [facility] Past Medical History Medical History Anxiety with depression Chronic GERD Diabetes Hemorrhagic stroke Hyperlipidemia Hypertension Surgical History Surgical History H/O: hysterectomy Hx of cholecystectomy Family History Family History (Updated 09/27/23 @ 23:23 by Lorena Naranjo RN) Mother Lung cancer Mother Diabetes mellitus Father Lung cancer Hypertension Sibling Heart disease Asthma Grandparent Hypertension Social History Social History (Updated 04/07/23 @ 16:42 by Martha Bob NP) Social History: She lives with her and has 2 children. She is retired from commercial insurance. Code status full code Smoking status: Never smoker Alcohol intake: never Drinks per week: 1 Substance use: never Do You Feel Safe in your Home?: Yes Lack of Transportation: No Lack of Food: Never True Current Housing: I Have Housing Concerned About Future Housing: No Difficulty Paying Gas/Electric Bills: No Difficulty Paying for Meds: No Currently Unemployed: No Education: High School Diploma/GED Difficulty w/ Childcare or Family Care:
[2023-09-27] MEDS: AZITHROMYCIN 500 MG/NS 250 ML 500 MG/250 ML BAG 250 MG IVPB (21:04)
--- NOTE | 2023-09-27 23:22 | ADMGEN ---
This patient, Denia Olson, was admitted to [facility] Room 303-01. Patient/family oriented to hospital policies and general routines including ID bracelet, bed and alarms, visiting hours, pain management, procedures, bathroom and other care routines, personal items, smoking policy, room service/diet, and visiting hours. Information on how to activate the Rapid Response Team has been discussed. Patient/Family are encouraged to report perceived risks to care and to ask questions if they do not understand what they are told or what they should do.
[2023-09-28] VITALS (32 sets, daily range): BP systolic 108–133; BP diastolic 53–90; PULSE 60–164; RESP 19–24; TEMP 36.2–37.1; O2SAT 93–100
[2023-09-28 01:02] LABS: Appearance Urine Cloudy (Clear); Bacteria Urine None Seen /hpf; Bilirubin Urine 2+ (Negative); Blood Urine Negative (Negative); Color Urine Dark Yellow (Yellow); Glucose Urine UA Negative (Negative); Hyaline Casts Urine Present /lpf; Ketones Urine Trace mg/dL (Negative); Leukocyte Esterase Ur 2+ LEU/UL (Negative); Need Manual Microscopic Reviewed; Nitrate Urine Negative (Negative); Protein Urine Trace mg/dL (Negative); RBC Urine 0-2 /hpf (0-2); Squamous Epithelial Cell Urine Few /hpf (Few)
[2023-09-28 01:04] LABS: Add Urine Microscopic? YES
--- NOTE | 2023-09-28 04:08 | ECG_ITS ---
Measurements Intervals [place] Rate: 167 P: [place]: 0 QRS: -3 QRSD: 98 T: 61 QT: 272 QTc: 453 Interpretive Statements ATRIAL FIBRILLATION WITH RAPID VENTRICULAR RESPONSE NONSPECIFIC ST & T-WAVE ABNORMALITY- ANTEROLAT/HIGH LAT LEADS ABNORMAL ECG COMPARED TO ECG 09/27/2023 18:43:57 ATR[address] F[address]RILLATION NOW PRESENT ST-T WAVE ABNORMALITY NOW PRESENT Electronically Signed On 09-28-2023 6:41:11 GENETIC ENGINEER by Buzz Escobedo D.O.
[2023-09-28] MEDS: dilTIAZem HCl INJ 25 MG/5 ML VIAL 10 MG IV PUSH ×2 (04:31→05:08)
--- NOTE | 2023-09-28 04:52 | PC.NURSE ---
This RN was notified by the charge attendant of pt's heartrate in the 170's at 0405. This RN reported to bedside and ordered a stat EKG per protocol. Pt reported no abnormal symptoms and vitals were taken. EKG showed Afib with RVR and results were called to physician. Pt converted over, but then went back into Afib with RVR. Meds were administered per physician orders. Pt converted over, then returned to afib with RVR. Report called to RN in IMU. Continue to monitor patient.
[2023-09-28] MEDS: dilTIAZem 100 MG/100 ML 100 MG/100 ML BAG 10 MG IV CONT (05:31)
--- NOTE | 2023-09-28 05:34 | PC.NURSE ---
pt transferred to IMU room 212 via bed.
[2023-09-28] MEDS: LORazepam INJ (*CRX) 2 MG/ML VIAL 1 MG IV PUSH (06:41)
[2023-09-28] MEDS: ALBUTEROL SULFATE NEB 2.5 MG/3 ML INH INHALATION (08:34)
[2023-09-28] MEDS: SOTALOL HCL 80 MG TABLET PO ×2 (08:55→21:39)
[2023-09-28] MEDS: ATORVASTATIN 10 MG TABLET PO (08:55)
[2023-09-28] MEDS: buPROPion HCL XL (24 HR) 150 MG TABCR 300 MG PO (08:55)
[2023-09-28] MEDS: ESCITALOPRAM OXALATE 10 MG TABLET PO (08:55)
[2023-09-28] MEDS: PANTOPRAZOLE 40 MG TABLET PO (08:55)
[2023-09-28] MEDS: ASPIRIN 81 MG ENTERIC TABLET BY MOUTH (08:57)
--- NOTE | 2023-09-28 12:06 | PC.NURSE ---
Patient stating that she's hallucinating. Pt states I see hua and stripes on the wall. Pt answers questions appropriately, A&O x 4. VS stable O2 93% on 2L. Pt also has now converted to NSR. Pt having difficultly bringing up phlegm. Pt's family requesting something more to help her cough that stuff up. Call placed to Dr. Barajas. New orders received for Duo-neb treatments q4h x6 then make PRN. One time dose of Zyprexa 5mg IM for uncontrolled hallucinations or if pt is unable to be redirected. Also new orders to stop the Cardizem gtt, if pt converts back to AFib RVR, may restart drip and then consult cardiology
[2023-09-28] MEDS: IPRATROPIUM 0.5 MG/ALBUTEROL SULFATE 2.5 MG AMPUL.NEB 3 ML INHALATION ×2 (15:01→20:43)
--- NOTE | 2023-09-28 18:33 | PM.IMPN ---
Progress Note: A&P Assessment and Plan (1) Hypoxia: Code(s): R09.02 - Hypoxemia Status: Acute Assessment and Plan: On supplemental oxygen by nasal cannula Supportive care (2) Pneumonia: Code(s): J18.9 - Pneumonia, unspecified organism Status: Acute Assessment and Plan: Patient started on Rocephin and Zithromax Cultures in progress (3) Influenza A: Code(s): J10.1 - Influenza due to other identified influenza virus with other respiratory manifestations Status: Acute Assessment and Plan: Supportive care (4) Chronic GERD: Code(s): K21.9 - Gastro-esophageal reflux disease without esophagitis Status: Acute Assessment and Plan: PPI (5) Atrial fibrillation: Code(s): I48.91 - Unspecified atrial fibrillation Status: Acute Assessment and Plan: Patient is on sotalol Not anticoagulated Plan Patient had episode of heart rate in the 100 and 60s given Cardizem bolus 10 mg IV push did not resolve transferred to IMU Time Spent With Patient Time with patient: 25 - 35 minutes Subjective Date/time seen: 09/28/23 18:33 Interval history: seen and examined; confused and hallucinating. Review of Systems Review of Systems: Shortness of breath, cough All systems reviewed & are unremarkable except as noted in HPI and below Constitutional: Constitutional: Reports no additional constitutional complaints Eyes: Eyes: Denies change in vision ENT: Reports system reviewed and no additional complaints, except as documented Cardiovascular: Cardiovascular: Reports no additional cardiovascular complaints Respiratory: Respiratory: Reports chest congestion, Reports cough and Reports dyspnea Gastrointestinal: Gastrointestinal: Denies abdominal pain, Denies dysphagia, Denies nausea, Denies odynophagia and Denies vomiting Genitourinary: Genitourinary: Reports no additional female genitourinary complaints Musculoskeletal: Musculoskeletal: Reports no additional musculoskeletal complaints Integumentary/Breasts: Skin/Breast: Denies rash Neurologic: Denies focal weakness, Denies Sensory deficit (Neuro) and Reports weakness Comments: H Psychiatric: Psychiatric: Reports confusion Endocrine: Endocrine: Denies cold intolerance, Denies fatigue, Denies flushing, Denies heat intolerance, Denies polyphagia, Denies polydipsia and Denies palpitations Hematologic/Lymphatic: Hematologic/Lymphatic: Reports no additional hematologic/lymphatic complaints and Reports as per HPI Allergic/Immunologic: Allergic/Immunologic: Reports no additional allergic/immunologic complaints and Reports as per HPI Exam Narrative: Patient is laying in a stretcher Const: General: no acute distress Nutritional Appearance: average body habitus Orientation/consciousness: patient oriented x3 Other: On supplemental oxygen by nasal cannula HENMT: Head: normal to inspection, normocephalic and atraumatic Ears: TM's normal bilaterally Face/Nose/Sinus: normal facial exam Face and sinus: normal facial exam Eyes: General: appearance normal, both eyes and all related structures Pupils: Equal, round and reactive pupils present EOM: EOMs intact bilaterally Neck: Neck: supple Thyroid: thyroid normal Lymphatic: no lymphadenopathy noted Resp: Effort & Inspection: normal respiratory effort Auscultation: clear to auscultation bilaterally, wheezes and diminished lung sounds Cardio: Jugular venous distension: no JVD Rate: regular rate Rhythm: regular rhythm Heart sounds: S1 normal heart sound present and S2 normal heart sound present : General: Yes deferred Skin: General skin exam: normal color Rashes: no rashes Wounds: no wounds Neuro: General: patient oriented x3 and CN's II-XI intact bilaterally Cranial nerves: Yes CN's II-XII intact bilaterally and Yes Equal, round and reactive pupils present Cognition (Neuro): normal cognition Speech: normal speech
[2023-09-28] MEDS: AZITHROMYCIN 500 MG/NS 250 ML 500 MG/250 ML BAG 250 MG IVPB (21:39)
[2023-09-29] VITALS (32 sets, daily range): BP systolic 120–151; BP diastolic 64–83; PULSE 56–150; RESP 20–24; TEMP 36.1–36.5; O2SAT 91–99
[2023-09-29] MEDS: IPRATROPIUM 0.5 MG/ALBUTEROL SULFATE 2.5 MG AMPUL.NEB 3 ML INHALATION ×5 (00:12→20:48)
[2023-09-29 04:59] LABS: Basophils Absolute Auto 0.1 K/mm3 (0.0-0.1); Eosinophils Absolute Auto 0.1 K/mm3 (0-0.3); Eosinophils Percent Auto 1.4 % (0-4.4); Hematocrit 29.9 % (37.0-47.0); Hemoglobin 9.4 g/dL (12.0-15.0); Immature Granulocyte Absolute 0.23 K/mm3 (0.00-0.031); Immature Granulocyte Percent A 4.6 % (0-0.5); Lymphocytes Absolute Auto 0.79 K/mm3 (0.9-3.2); Lymphocytes Percent Auto 15.9 % (18.3-44.2); Mean Corpuscular HGB Conc 31.4 g/dl (32-36); Mean Corpuscular Hemoglobin 28.5 pg (26-34); Mean Corpuscular Volume 90.6 fl (80-100); Mean Platelet Volume 9.8 fl (7.4-10.4); Monocytes Percent Auto 19.5 % (2.6-8.5); Neutrophils Absolute Auto 2.9 K/mm3 (1.3-6.7); Neutrophils Percent Auto 57.6 % (45.5-73.1); Platelet Count Result 139 k/mm3 (150-375); Red Cell Distribution Width 14.2 % (11.5-14.5)
[2023-09-29 05:10] LABS: Alanine Aminotransferase 137 U/L (6-35); Albumin Level 2.8 g/dL (3.5-5.1); Alkaline Phosphatase 169 U/L (38-126); Anion Gap 12 mmol/L (8-16); Aspartate Amino Transferase 233 U/L (14-36); Bilirubin,Total 0.7 mg/dL (0.2-1.3); Blood Urea Nitrogen 73 mg/dL (7-17); Calcium 8.5 mg/dL (8.4-10.2); Carbon Dioxide 26 mmol/L (22-30); Chloride 104 mmol/L (98-107); Estimated CRCL calculation 27 ml/min; Estimated Glomerular Filt Rate 25; Glucose 233 mg/dL (65-110); Potassium 4.1 mmol/L (3.4-5.0); Sodium 142 mmol/L (137-145)
[2023-09-29 05:40] LABS: Platelet Estimate Decreased (Adequate)
[2023-09-29 05:42] LABS: Anisocytosis 1+ (NORMAL); Ovalocytes 1+ (NORMAL); Schistocytes None Seen (NORMAL)
[2023-09-29] MEDS: PANTOPRAZOLE 40 MG TABLET PO (08:37)
[2023-09-29] MEDS: SOTALOL HCL 80 MG TABLET PO (08:37)
[2023-09-29] MEDS: ESCITALOPRAM OXALATE 10 MG TABLET PO (08:37)
[2023-09-29] MEDS: buPROPion HCL XL (24 HR) 150 MG TABCR 300 MG PO (08:37)
[2023-09-29] MEDS: ATORVASTATIN 10 MG TABLET PO (08:37)
--- NOTE | 2023-09-29 08:37 | PM.CNCAR ---
Assessment and Plan Assessment and plan (1) Atrial fibrillation with rapid ventricular response: Code(s): I48.91 - Unspecified atrial fibrillation Status: Acute Assessment and Plan: History of paroxysmal atrial fibrillation managed on sotalol. Recurrence of atrial fibrillation with RVR in the setting of acute illness with influenza and pneumonia. Heart rates up to the 150's at times. She has converted back to sinus rhythm several times, but predominantly has been in atrial fibrillation. Will increase sotalol dose to 120mg b.i.d. Diltiazem gtt for rate control for the time being Not on a/c because of history of hemorrhagic stroke. Has declined LAAO in the past. Continue telemetry Will check EKG tonight after sotalol administration (On Azithromycin, which can cause QT prolongation) (2) Pneumonia: Code(s): J18.9 - Pneumonia, unspecified organism Status: Acute Assessment and Plan: On abx per hospitalist. On supplemental O2. Wean as tolerated. (3) Influenza A: Code(s): J10.1 - Influenza due to other identified influenza virus with other respiratory manifestations Status: Acute Assessment and Plan: Supportive care (4) Hyperlipidemia: Code(s): E78.5 - Hyperlipidemia, unspecified Status: Acute Assessment and Plan: Continue statin (5) Hypertension: Code(s): I10 - Essential (primary) hypertension Status: Acute Assessment and Plan: BP at goal. History of Present Illness History of Present Illness Consult date/time: 09/29/23 08:37 Requesting physician: Elbert Barajas MD Consult reason: atrial fibrillation Reason For Visit: Pneumonia/Influenza/Hypoxia/ARLYN on Chronic Kidney Narrative: Denia Olson is a 62-year-old female with atrial fibrillation. She also has a history of hemorrhagic stroke and for this reason she is not anticoagulated. She is currently hospitalized with Influenza A and pneumonia. She has developed atrial fibrillation with rapid ventricular response in this setting. She is completely asymptomatic with this and denies any palpitations. She has been on sotalol as an outpatient since March of 2023. This is her first recurrence of atrial fibrillation that she is aware of. Review of Systems Review of Systems: All systems reviewed & are unremarkable except as noted in HPI and below PMFSH Past Medical History Medical History Anxiety with depression Chronic GERD Diabetes Hemorrhagic stroke Hyperlipidemia Hypertension Surgical History Surgical History H/O: hysterectomy Hx of cholecystectomy Family History Family History Mother Lung cancer Mother Diabetes mellitus Father Lung cancer Hypertension Sibling Heart disease Asthma Grandparent Hypertension Social History Social History Social History: She lives with her and has 2 children. She is retired from commercial insurance. Code status full code Smoking status: Never smoker Alcohol intake: never Drinks per week: 1 Substance use: never Do You Feel Safe in your Home?: Yes Lack of Transportation: No Lack of Food: Never True Current Housing: I Have Housing Concerned About Future Housing: No Difficulty Paying Gas/Electric Bills: No Difficulty Paying for Meds: No Currently Unemployed: No Education: High School Diploma/GED Difficulty w/ Childcare or Family Care: No Spiritual care concerns: No Meds Home Medications and Allergies Home Medications Medication Instructions Recorded Confirmed Type aspirin 81 mg tablet,delayed See Rx Instructions .Route .COMPLEX 04/07/23 09/27/23 History release (Adult Low Dose Aspirin) atorvastatin 10 mg tablet 10 mg PO D
[2023-09-29] MEDS: SODIUM CHLORIDE 0.9% IV 1,000 ML 75 ML IV CONT (08:39)
[2023-09-29] MEDS: dilTIAZem 100 MG/100 ML 100 MG/100 ML BAG IV CONT (10:30)
--- NOTE | 2023-09-29 14:00 | PC.NURSE ---
Isabell Esteves NP initiated call to RN to obtain update on pt's HR. RN informed her that pt had converted to NSR at approximately 1130. New order to pause [place] gtt now and [employer] will reassess this evening to see if drip can be d/c'd.
--- NOTE | 2023-09-29 15:50 | ECG_ITS ---
Measurements Intervals [place] Rate: 67 P: 11 MO: 128 QRS: -2 QRSD: 97 T: 29 QT: 453 QTc: 479 Interpretive Statements SINUS RHYTHM BORDERLINE ST ABNORMALITY- HIGH LATERAL LEADS BORDERLINE ECG COMPARED TO ECG 09/28/2023 04:22:36 SINUS RHYTHM NOW PRESENT Electronically Signed On 09-29-2023 18:49:33 ADHESIVE SPRAYER by Buzz Escobedo D.O.
--- NOTE | 2023-09-29 15:54 | PM.IMPN ---
Progress Note: A&P Assessment and Plan (1) Hypoxia: Code(s): R09.02 - Hypoxemia Status: Acute Assessment and Plan: On supplemental oxygen by nasal cannula Supportive care (2) Pneumonia: Code(s): J18.9 - Pneumonia, unspecified organism Status: Acute Assessment and Plan: Patient started on Rocephin and Zithromax Cultures in progress (3) Influenza A: Code(s): J10.1 - Influenza due to other identified influenza virus with other respiratory manifestations Status: Acute Assessment and Plan: Supportive care (4) Chronic GERD: Code(s): K21.9 - Gastro-esophageal reflux disease without esophagitis Status: Acute Assessment and Plan: PPI (5) Atrial fibrillation: Code(s): I48.91 - Unspecified atrial fibrillation Status: Acute Assessment and Plan: Patient is on sotalol Not anticoagulated Plan Assessment and Plan (1) Hypoxia: ?Code(s): R09.02 - Hypoxemia ?Status:?Acute ?Assessment and Plan: On supplemental oxygen by nasal cannula Supportive care (2) Pneumonia: ?Code(s): J18.9 - Pneumonia, unspecified organism ?Status:?Acute ?Assessment and Plan: Patient started on Rocephin and Zithromax Cultures in progress (3) Influenza A: ?Code(s): J10.1 - Influenza due to other identified influenza virus with other respiratory manifestations ?Status:?Acute ?Assessment and Plan: Supportive care (4) Chronic GERD: ?Code(s): K21.9 - Gastro-esophageal reflux disease without esophagitis ?Status:?Acute ?Assessment and Plan: PPI (5) Atrial fibrillation: ?Code(s): I48.91 - Unspecified atrial fibrillation ?Status:?Acute ?Assessment and Plan: Patient is on sotalol Not anticoagulated: Not on a/c because of history of hemorrhagic stroke.? Has declined LAAO in the past. Cardiology on board Time Spent With Patient Time with patient: 25 - 35 minutes Subjective Date/time seen: 09/29/23 15:54 Interval history: seen and examined; sleepy Review of Systems Review of Systems: Shortness of breath, cough All systems reviewed & are unremarkable except as noted in HPI and below Constitutional: Constitutional: Reports no additional constitutional complaints, Reports chills, Denies fatigue, Reports malaise, Reports poor appetite and Reports weakness Eyes: Eyes: Denies change in vision ENT: Reports system reviewed and no additional complaints, except as documented, Denies dysphagia and Denies odynophagia Cardiovascular: Cardiovascular: Reports no additional cardiovascular complaints, Denies chest pain, Denies radiating jaw, neck or arm pain, Denies palpitations and Reports dyspnea Respiratory: Respiratory: Reports chest congestion, Reports cough and Reports dyspnea Gastrointestinal: Gastrointestinal: Denies abdominal pain, Denies dysphagia, Denies nausea, Denies odynophagia and Denies vomiting Genitourinary: Genitourinary: Reports no additional female genitourinary complaints and Denies dysuria Musculoskeletal: Musculoskeletal: Reports no additional musculoskeletal complaints and Reports muscle weakness Integumentary/Breasts: Skin/Breast: Denies rash Neurologic: Reports confusion, Denies focal weakness, Denies Sensory deficit (Neuro) and Reports weakness Psychiatric: Psychiatric: Reports no additional psychiatric complaints, Reports as per HPI and Reports confusion Endocrine: Endocrine: Denies cold intolerance, Denies fatigue, Denies flushing, Denies heat intolerance, Denies polyphagia, Denies polydipsia and Denies palpitations Hematologic/Lymphatic: Hematologic/Lymphatic: Reports no additional hematologic/lymphatic complaints and Reports as per HPI Allergic/Immunologic: Allergic/Immunologic: Reports no additional allergic/immunologic complaints and Reports as per HPI Exam Narrative: Patient is laying in a stretcher Const: General: comfortable, no
--- NOTE | 2023-09-29 16:02 | PC.NURSE ---
Isabell Esteves NP had called RN for update on pt and after reading 12-lead EKG. New order to d/c Cardizem gtt and continue with the increased Sotalol dose this evening. Repeat EKG tonight after Sotalol dose.
[2023-09-29] MEDS: DORNASE ALFA INH SOLN 1 MG/ML 2.5 ML AMP 2.5 MG INHALATION (20:48)
[2023-09-29] MEDS: LORazepam (*CRX) 0.5 MG TABLET PO (21:40)
[2023-09-29] MEDS: SOTALOL HCL 40 MG TABLET 120 MG PO (21:40)
[2023-09-29] MEDS: AZITHROMYCIN 500 MG/NS 250 ML 500 MG/250 ML BAG 250 MG IVPB (21:40)
--- NOTE | 2023-09-29 23:00 | ECG_ITS ---
Measurements Intervals [place] Rate: 62 P: 152 ND: 127 QRS: 183 QRSD: 98 T: 150 QT: 491 QTc: 499 Interpretive Statements SINUS RHYTHM ARM LEADS REVERSED ATYPICAL ECG COMPARED TO ECG 09/29/2023 16:16:18 NO SIGNIFICANT CHANGES Electronically Signed On 09-30-2023 6:29:18 ORIENTOR by Buzz Escobedo D.O.
[2023-09-30] VITALS (29 sets, daily range): BP systolic 134–154; BP diastolic 63–92; PULSE 63–160; RESP 20–24; TEMP 36–36.5; O2SAT 82–100
[2023-09-30] MEDS: IPRATROPIUM 0.5 MG/ALBUTEROL SULFATE 2.5 MG AMPUL.NEB 3 ML INHALATION ×7 (00:19→23:25)
[2023-09-30] MEDS: SODIUM CHLORIDE 0.9% IV 1,000 ML 75 ML IV CONT (00:33)
[2023-09-30] MEDS: MORPHINE SULFATE (*CRX) 2 MG/ML INJ IV PUSH (04:15)
[2023-09-30 04:54] LABS: Basophils Percent Auto 0.7 % (0.2-1.2); Eosinophils Absolute Auto 0.1 K/mm3 (0-0.3); Eosinophils Percent Auto 1.9 % (0-4.4); Hematocrit 27.8 % (37.0-47.0); Hemoglobin 8.7 g/dL (12.0-15.0); Immature Granulocyte Absolute 0.38 K/mm3 (0.00-0.031); Immature Granulocyte Percent A 9.1 % (0-0.5); Lymphocytes Absolute Auto 0.65 K/mm3 (0.9-3.2); Lymphocytes Percent Auto 15.5 % (18.3-44.2); Mean Corpuscular HGB Conc 31.3 g/dl (32-36); Mean Corpuscular Hemoglobin 28.5 pg (26-34); Mean Corpuscular Volume 91.1 fl (80-100); Mean Platelet Volume 10.2 fl (7.4-10.4); Monocytes Absolute Auto 0.8 K/mm3 (0.1-0.6); Monocytes Percent Auto 17.9 % (2.6-8.5); Neutrophils Absolute Auto 2.3 K/mm3 (1.3-6.7); Neutrophils Percent Auto 54.9 % (45.5-73.1); Platelet Count Result 123 k/mm3 (150-375); Red Blood Count 3.05 M/mm3 (4.2-5.4); Red Cell Distribution Width 14.3 % (11.5-14.5); White Blood Count 4.2 K/mm3 (4.5-10.0)
[2023-09-30 05:08] LABS: Alanine Aminotransferase 220 U/L (6-35); Albumin Level 2.8 g/dL (3.5-5.1); Alkaline Phosphatase 243 U/L (38-126); Anion Gap 10 mmol/L (8-16); Aspartate Amino Transferase 297 U/L (14-36); Bilirubin,Total 0.7 mg/dL (0.2-1.3); Blood Urea Nitrogen 51 mg/dL (7-17); Carbon Dioxide 24 mmol/L (22-30); Chloride 107 mmol/L (98-107); Estimated CRCL calculation 36 ml/min; Estimated Glomerular Filt Rate 35; Glucose 229 mg/dL (65-110); Potassium 3.5 mmol/L (3.4-5.0); Sodium 141 mmol/L (137-145)
[2023-09-30 05:53] LABS: Anisocytosis 1+ (NORMAL); Ovalocytes 1+ (NORMAL); Platelet Estimate Decreased (Adequate); Schistocytes None Seen (NORMAL)
[2023-09-30] MEDS: DORNASE ALFA INH SOLN 1 MG/ML 2.5 ML AMP 2.5 MG INHALATION ×2 (07:43→20:10)
[2023-09-30] MEDS: PANTOPRAZOLE 40 MG TABLET PO (08:45)
[2023-09-30] MEDS: SOTALOL HCL 80 MG TABLET PO ×2 (08:45→22:17)
[2023-09-30] MEDS: ATORVASTATIN 10 MG TABLET PO (08:45)
[2023-09-30] MEDS: ESCITALOPRAM OXALATE 10 MG TABLET PO (08:45)
[2023-09-30] MEDS: ASPIRIN 81 MG ENTERIC TABLET BY MOUTH (08:48)
[2023-09-30] MEDS: buPROPion HCL XL (24 HR) 150 MG TABCR 300 MG PO (08:48)
[2023-09-30] MEDS: guaiFENesin/DEXTROMETHORPHAN 10 ML UDC PO ×3 (08:48→23:43)
--- NOTE | 2023-09-30 11:45 | PC.NURSE ---
Pt has been in NSR for 24 hours. Discussed downgrade of medical status with Cardikoolgy. Cardiology ok for pt to be downgraded to med/tele. RN updated Dr. Barajas, who is in agreement with downgrade. New order received for med/tele
--- NOTE | 2023-09-30 15:46 | PM.PNCARD ---
Progress Note: A&P Assessment and Plan (1) Atrial fibrillation with rapid ventricular response: Code(s): I48.91 - Unspecified atrial fibrillation Status: Acute Assessment and Plan: History of paroxysmal atrial fibrillation managed on sotalol. Recurrence of atrial fibrillation with RVR in the setting of acute illness with influenza and pneumonia. Heart rates up to the 150's at times. She has converted back to sinus rhythm several times, but predominantly has been in atrial fibrillation. Will decrease sotalol back to home dose of 80mg b.i.d. due to QTc prolongation Not on a/c because of history of hemorrhagic stroke. Has declined LAAO in the past. Continue telemetry Cardiology will see on an as needed basis please call with questions (2) Pneumonia: Code(s): J18.9 - Pneumonia, unspecified organism Status: Acute Assessment and Plan: On abx per hospitalist. On supplemental O2. Wean as tolerated. (3) Influenza A: Code(s): J10.1 - Influenza due to other identified influenza virus with other respiratory manifestations Status: Acute Assessment and Plan: Supportive care (4) Hyperlipidemia: Code(s): E78.5 - Hyperlipidemia, unspecified Status: Acute Assessment and Plan: Continue statin (5) Hypertension: Code(s): I10 - Essential (primary) hypertension Status: Acute Assessment and Plan: BP at goal. Subjective Date/time seen: 09/30/23 15:46 Interval history: Cardiology follow up for Afib Converted to sinus rhythm yesterday and remains in sinus today. Review of Systems Review of Systems: All systems reviewed & are unremarkable except as noted in HPI and below Exam Const: General: comfortable, no acute distress, well developed, alert, awake, confusion, ill appearing and average body habitus Nutritional Appearance: average body habitus Orientation/consciousness: patient oriented x3 and confusion Other: On supplemental oxygen by nasal cannula HENMT: Head: normal to inspection, normocephalic and atraumatic Ears: hearing grossly normal bilaterally and TM's normal bilaterally Face/Nose/Sinus: normal facial exam Face and sinus: normal facial exam Eyes: General: appearance normal, both eyes and all related structures Pupils: Equal, round and reactive pupils present EOM: EOMs intact bilaterally Neck: Neck: full ROM, no lymphadenopathy, supple and no JVD Thyroid: thyroid normal Lymphatic: no lymphadenopathy noted Resp: Effort & Inspection: normal respiratory effort and able to speak in complete sentences Auscultation: clear to auscultation bilaterally, wheezes and diminished lung sounds Cardio: Jugular venous distension: no JVD Rate: regular rate Rhythm: regular rhythm Heart sounds: S1 normal heart sound present and S2 normal heart sound present : General: Yes deferred Skin: General skin exam: normal color Rashes: no rashes Wounds: no wounds Neuro: General: patient oriented x3, CN's II-XI intact bilaterally and confusion Cranial nerves: Yes CN's II-XII intact bilaterally and Yes Equal, round and reactive pupils present Cognition (Neuro): normal cognition Speech: normal speech Gait exam (Neuro): Normal gait present Motor exam (neuro): 5/5 motor strength present throughout Sensory Exam: No Sensory deficit (Neuro) Extrem: General: normal to inspection, full ROM, normal exam except as noted, no joint enlargement and no pedal edema Psych: Affect: Anxious affect present Objective Data Vital Signs Vital Signs: Vital Signs - 24 hr 09/29/23 16:00 09/29/23 17:41 09/29/23 16:00 Temperature 36.3 C L Pulse Rate 64 65 Respiratory Rate 24 H Blood Pressure 127/64 Pulse Oximetry 91 91 Oxygen Delivery Room Air Oxygen Flow Rate 09/29/23 16:00 09/29/23 18:00 09/29/23 20:00 Temperature 36.4 C Pulse Rate 67 67 71 Respiratory Rate 24 H Blood Pressure 151/83 H Pulse Oximetry 94 Oxy
--- NOTE | 2023-09-30 16:42 | PM.IMPN ---
Progress Note: A&P Assessment and Plan (1) Hypoxia: Code(s): R09.02 - Hypoxemia Status: Acute Assessment and Plan: On supplemental oxygen by nasal cannula; wean Supportive care (2) Pneumonia: Code(s): J18.9 - Pneumonia, unspecified organism Status: Acute Assessment and Plan: Patient started on Rocephin and Zithromax Cultures in progress (3) Influenza A: Code(s): J10.1 - Influenza due to other identified influenza virus with other respiratory manifestations Status: Acute Assessment and Plan: Supportive care (4) Chronic GERD: Code(s): K21.9 - Gastro-esophageal reflux disease without esophagitis Status: Acute Assessment and Plan: PPI (5) Atrial fibrillation: Code(s): I48.91 - Unspecified atrial fibrillation Status: Acute Assessment and Plan: Patient is on sotalol Not anticoagulated Per Cardiology: Recurrence of atrial fibrillation with RVR in the setting of acute illness with influenza and pneumonia.? Heart rates up to the 150's at times.? She has converted back to sinus rhythm several times, but predominantly has been in atrial fibrillation.? Will decrease sotalol back to home dose of 80mg b.i.d.? due to QTc prolongation Not on a/c because of history of hemorrhagic stroke.? Has declined LAAO in the past. Continue telemetry Cardiology will see on an as needed basis please call with questions Plan Assessment and Plan (1) Hypoxia: ?Code(s): R09.02 - Hypoxemia ?Status:?Acute ?Assessment and Plan: On supplemental oxygen by nasal cannula Supportive care (2) Pneumonia: ?Code(s): J18.9 - Pneumonia, unspecified organism ?Status:?Acute ?Assessment and Plan: Patient started on Rocephin and Zithromax Cultures in progress (3) Influenza A: ?Code(s): J10.1 - Influenza due to other identified influenza virus with other respiratory manifestations ?Status:?Acute ?Assessment and Plan: Supportive care (4) Chronic GERD: ?Code(s): K21.9 - Gastro-esophageal reflux disease without esophagitis ?Status:?Acute ?Assessment and Plan: PPI (5) Atrial fibrillation: ?Code(s): I48.91 - Unspecified atrial fibrillation ?Status:?Acute ?Assessment and Plan: Patient is on sotalol Not anticoagulated: Not on a/c because of history of hemorrhagic stroke.? Has declined LAAO in the past. Cardiology on board Disposition: May be DC'd once the HR is controlled Time Spent With Patient Time with patient: 25 - 35 minutes Subjective Date/time seen: 09/30/23 16:42 Interval history: Seen and examined; not in painful or respiratory distress being managed for A-fib with Sotalol Review of Systems Review of Systems: Shortness of breath, cough All systems reviewed & are unremarkable except as noted in HPI and below Constitutional: Constitutional: Reports no additional constitutional complaints, Reports chills, Denies fatigue, Reports malaise, Reports poor appetite and Reports weakness Eyes: Eyes: Denies change in vision ENT: Reports system reviewed and no additional complaints, except as documented, Denies dysphagia and Denies odynophagia Cardiovascular: Cardiovascular: Reports no additional cardiovascular complaints, Denies chest pain, Denies radiating jaw, neck or arm pain, Denies palpitations and Reports dyspnea Respiratory: Respiratory: Reports chest congestion, Reports cough and Reports dyspnea Gastrointestinal: Gastrointestinal: Denies abdominal pain, Denies dysphagia, Denies nausea, Denies odynophagia and Denies vomiting Genitourinary: Genitourinary: Reports no additional female genitourinary complaints and Denies dysuria Musculoskeletal: Musculoskeletal: Reports no additional musculoskeletal complaints and Reports muscle weakness Integumentary/Breasts: Skin/Breast: Denies rash Neurologic: Reports confusion, Denies focal weakness, Denies Sensory defici
[2023-09-30] MEDS: SODIUM CHLORIDE 0.9% IV 1,000 ML 50 ML IV CONT (16:58)
--- NOTE | 2023-09-30 18:45 | PC.NURSE ---
1819: Call placed to Cardiology exchange regarding change in pt condition. 1849: Call received from Dr. Ward. RN updated MD regarding pt condition. Pt is now back in Afib RVR with rate of 120-160. New order for 10mg IVP Cardizem now and to start Cardizem gtt at 10mg/hr.
[2023-09-30] MEDS: dilTIAZem 100 MG/100 ML 100 MG/100 ML BAG 10 MG IV CONT (18:53)
[2023-09-30] MEDS: dilTIAZem HCl INJ 25 MG/5 ML VIAL 10 MG IV PUSH (18:53)
[2023-09-30] MEDS: AZITHROMYCIN 500 MG/NS 250 ML 500 MG/250 ML BAG 250 MG IVPB (22:17)
[2023-10-01] VITALS (24 sets, daily range): BP systolic 128–143; BP diastolic 77–80; PULSE 63–119; RESP 16–24; TEMP 36.4–36.8; O2SAT 91–98
[2023-10-01] MEDS: IPRATROPIUM 0.5 MG/ALBUTEROL SULFATE 2.5 MG AMPUL.NEB 3 ML INHALATION ×5 (04:55→20:27)
[2023-10-01 04:59] LABS: Basophils Absolute Auto 0.1 K/mm3 (0.0-0.1); Eosinophils Absolute Auto 0.1 K/mm3 (0-0.3); Eosinophils Percent Auto 1.4 % (0-4.4); Hematocrit 30.5 % (37.0-47.0); Hemoglobin 9.4 g/dL (12.0-15.0); Immature Granulocyte Absolute 0.83 K/mm3 (0.00-0.031); Immature Granulocyte Percent A 11.7 % (0-0.5); Lymphocytes Absolute Auto 0.88 K/mm3 (0.9-3.2); Lymphocytes Percent Auto 12.4 % (18.3-44.2); Mean Corpuscular HGB Conc 30.8 g/dl (32-36); Mean Corpuscular Hemoglobin 28.6 pg (26-34); Mean Corpuscular Volume 92.7 fl (80-100); Mean Platelet Volume 10.5 fl (7.4-10.4); Monocytes Absolute Auto 0.9 K/mm3 (0.1-0.6); Monocytes Percent Auto 13.2 % (2.6-8.5); Neutrophils Absolute Auto 4.3 K/mm3 (1.3-6.7); Neutrophils Percent Auto 60.3 % (45.5-73.1); Platelet Count Result 147 k/mm3 (150-375); Red Blood Count 3.29 M/mm3 (4.2-5.4); White Blood Count 7.1 K/mm3 (4.5-10.0)
[2023-10-01 05:22] LABS: Alanine Aminotransferase 182 U/L (6-35); Albumin Level 3.1 g/dL (3.5-5.1); Alkaline Phosphatase 253 U/L (38-126); Anion Gap 8 mmol/L (8-16); Aspartate Amino Transferase 136 U/L (14-36); Bilirubin,Total 0.6 mg/dL (0.2-1.3); Blood Urea Nitrogen 32 mg/dL (7-17); Calcium 7.8 mg/dL (8.4-10.2); Carbon Dioxide 25 mmol/L (22-30); Chloride 107 mmol/L (98-107); Estimated CRCL calculation 44 ml/min; Estimated Glomerular Filt Rate 45; Glucose 300 mg/dL (65-110); Potassium 3.7 mmol/L (3.4-5.0); Sodium 140 mmol/L (137-145)
[2023-10-01] MEDS: dilTIAZem 100 MG/100 ML 100 MG/100 ML BAG 10 MG IV CONT ×3 (06:42→21:04)
[2023-10-01] MEDS: DORNASE ALFA INH SOLN 1 MG/ML 2.5 ML AMP 2.5 MG INHALATION (07:59)
[2023-10-01] MEDS: PANTOPRAZOLE 40 MG TABLET PO (09:52)
[2023-10-01] MEDS: ATORVASTATIN 10 MG TABLET PO (09:52)
[2023-10-01] MEDS: SOTALOL HCL 80 MG TABLET PO ×2 (09:52→20:58)
[2023-10-01] MEDS: buPROPion HCL XL (24 HR) 150 MG TABCR 300 MG PO (09:52)
[2023-10-01] MEDS: ESCITALOPRAM OXALATE 10 MG TABLET PO (09:54)
[2023-10-01] MEDS: guaiFENesin/DEXTROMETHORPHAN 10 ML UDC PO (10:26)
--- NOTE | 2023-10-01 10:55 | PM.IMPN ---
Progress Note: A&P Assessment and Plan (1) Pneumonia: Qualifiers: Pneumonia type: due to unspecified organism Lung location: unspecified part of lung Code(s): J18.9 - Pneumonia, unspecified organism Status: Acute Assessment and Plan: 09/28 started ceftriaxone and azithromycin 10/01 use doxycycline instead of azithromycin due to interaction with escitalopram and anti arrhythmics (2) Atrial fibrillation: Qualifiers: Atrial fibrillation type: paroxysmal Qualified Code(s): I48.0 - Paroxysmal atrial fibrillation Code(s): I48.91 - Unspecified atrial fibrillation Status: Acute Assessment and Plan: Continue home sotalol and ASA (no anticoagulation due to hx intracranial bleed) and pt has declined LAAO in past 10/01 diltiazem drip begun during the night due to AFib with RVR and now in sinus rhythm with Mobitz 2 block on 12 lead EKG, QTC WNL (3) Diabetes: Qualifiers: Diabetes mellitus type: type 2 Diabetes mellitus supervisor intermediates insulin use: without fpc use Diabetes mellitus complication status: with hyperglycemia Qualified Code(s): E11.65 - Type 2 diabetes mellitus with hyperglycemia Code(s): E11.9 - Type 2 diabetes mellitus without complications Status: Acute Assessment and Plan: Was on metformin at home 10/01 blood sugars running 200-300 since admission so added basal and sliding scale insulin (4) Hypoxia: Code(s): R09.02 - Hypoxemia Status: Acute Assessment and Plan: 10/01 off oxygen (5) Influenza A: Code(s): J10.1 - Influenza due to other identified influenza virus with other respiratory manifestations Status: Acute Assessment and Plan: Continue symptomatic treatment Bronchodilators Cough suppressant p.r.n. (6) ARLYN (acute kidney injury): Code(s): N17.9 - Acute kidney failure, unspecified Status: Acute Assessment and Plan: Creatinine 2.6 on 09/27, 1.2 on 10/01 (at baseline) F/u lab (7) Anemia: Code(s): D64.9 - Anemia, unspecified Status: Acute Assessment and Plan: 09/27 hgb 12.1, 10/01 9.4 F/u lab (8) Thrombocytopenia: Code(s): D69.6 - Thrombocytopenia, unspecified Status: Acute Assessment and Plan: 09/27 plt 213k, 1/20 147k F/u lab (9) Chronic GERD: Code(s): K21.9 - Gastro-esophageal reflux disease without esophagitis Status: Acute Assessment and Plan: PPI (10) DVT prophylaxis: Code(s): Z29.9 - Encounter for prophylactic measures, unspecified Status: Acute Assessment and Plan: 10/01 SCD's ordered due to hx intracranial bleed, anemia, thrombocytopenia Subjective Date/time seen: 10/01/23 10:55 Interval history: Complaints fatigue. Continuous cough. Can not sleep. Short of breath with exertion. Wheezing. Cough productive of green to brown sputum. Denied fevers or chills. Denied chest pain. Was constipated but had bowel movement this morning. Denied abnormal bleeding. Review of Systems Review of Systems: All systems reviewed & are unremarkable except as noted in HPI and below Exam Narrative: HEENT: PERRL, sclerae nonicteric, pharyngeal mucosa pink and intact NECK: No JVD CHEST: NL effort. Diffuse rhonchi and expiratory wheezes. HEART: NL S1/S2, regularly irregular, no murmur. ABDOMEN: BS+, soft, nontender, no mass, no bruits EXTREMITIES: No cyanosis, edema, or clubbing NEUROLOGIC: CN intact and symmetric to inspection. MUSCULOSKELETAL: Tone and strength symmetric. PSYCH: Alert. Oriented to person, place, and time. Objective Data Vital Signs Vital Signs: Vital Signs - 24 hr 09/30/23 11:14 09/30/23 11:26 09/30/23 12:00 Temperature 97.7 F Pulse Rate 66 67 67 Respiratory Rate 20 20 22 H Blood Pressure 148/67 H Pulse Oximetry 97 Oxygen Delivery Oxygen Flow Rate 09/30/23 12:19 09/30/23 13:07 09/30/23 12:00 Temperature Pulse Rate 71 Respira
--- NOTE | 2023-10-01 11:00 | ECG_ITS ---
Measurements Intervals [place] Rate: 102 P: ND: 0 QRS: -11 QRSD: 94 T: 7 QT: 366 QTc: 477 Interpretive Statements ATRIAL FIBRILLATION WITH RAPID VENTRICULAR RESPONSE DELAYED PRECORDIAL R/S TRANSITION BORDERLINE ST ABNORMALITY- HIGH LATERAL LEADS ABNORMAL ECG COMPARED TO ECG 09/29/2023 23:43:14 ATRIAL FIBRILLATION NOW PRESENT ST (T WAVE) DEVIATION NOW PRESENT Electronically Signed On 10-01-2023 15:17:37 CIVIL ENGINEERING DIRECTOR by Buzz Escobedo D.O.
[2023-10-01] MEDS: PROMETHAZINE/CODEINE (*CRX) 5 ML SYRUP PO ×2 (13:59→18:55)
[2023-10-01 14:42] LABS: IFOB Positive Control Positive; Immunochemical Fecal Occult Bl Negative (N)
[2023-10-01 16:14] LABS: Glucose Point of Care 318 mg/dl (65-105)
[2023-10-01] MEDS: INSULIN ASPART (*BKC) 100 UNITS/ML SUB-Q (16:39)
[2023-10-01 19:54] LABS: Glucose Point of Care 333 mg/dl (65-105)
[2023-10-01] MEDS: DOXYCYCLINE HYCLATE 100 MG TABLET PO (20:58)
[2023-10-01] MEDS: MELATONIN 5 MG TABLET PO (20:58)
[2023-10-01] MEDS: SENNOSIDES 8.6 MG TABLET PO (20:59)
[2023-10-01] MEDS: INSULIN GLARGINE (*BKC) 100 UNITS/ML 12 UNITS SUB-Q (20:59)
[2023-10-02] VITALS (29 sets, daily range): BP systolic 142–187; BP diastolic 66–82; PULSE 61–124; RESP 16–24; TEMP 36.3–36.6; O2SAT 92–100
[2023-10-02] MEDS: IPRATROPIUM 0.5 MG/ALBUTEROL SULFATE 2.5 MG AMPUL.NEB 3 ML INHALATION ×3 (00:52→11:18)
--- NOTE | 2023-10-02 03:02 | ECG_ITS ---
Measurements Intervals [place] Rate: 62 P: 13 [place]: 129 QRS: -5 QRSD: 91 T: 29 QT: 476 QTc: 484 Interpretive Statements SINUS RHYTHM NORMAL ECG COMPARED TO ECG 10/01/2023 10:58:11 SINUS RHYTHM NOW PRESENT Electronically Signed On 10-02-2023 8:08:48 MATRIX PLATER by Buzz Escobedo D.O.
[2023-10-02] MEDS: PROMETHAZINE/CODEINE (*CRX) 5 ML SYRUP PO ×4 (03:31→22:01)
[2023-10-02 04:49] LABS: Basophils Absolute Auto 0.1 K/mm3 (0.0-0.1); Basophils Percent Auto 0.9 % (0.2-1.2); Eosinophils Absolute Auto 0.1 K/mm3 (0-0.3); Eosinophils Percent Auto 1.5 % (0-4.4); Hematocrit 29.9 % (37.0-47.0); Hemoglobin 9.1 g/dL (12.0-15.0); Immature Granulocyte Absolute 0.98 K/mm3 (0.00-0.031); Immature Granulocyte Percent A 14.3 % (0-0.5); Lymphocytes Absolute Auto 0.94 K/mm3 (0.9-3.2); Lymphocytes Percent Auto 13.7 % (18.3-44.2); Mean Corpuscular HGB Conc 30.4 g/dl (32-36); Mean Corpuscular Hemoglobin 28.3 pg (26-34); Mean Corpuscular Volume 92.9 fl (80-100); Mean Platelet Volume 10.1 fl (7.4-10.4); Monocytes Absolute Auto 0.8 K/mm3 (0.1-0.6); Monocytes Percent Auto 11.4 % (2.6-8.5); Neutrophils Percent Auto 58.2 % (45.5-73.1); Platelet Count Result 143 k/mm3 (150-375); Red Blood Count 3.22 M/mm3 (4.2-5.4); Red Cell Distribution Width 13.9 % (11.5-14.5); White Blood Count 6.9 K/mm3 (4.5-10.0)
[2023-10-02 05:08] LABS: Iron 44 ug/dL (37-170)
[2023-10-02 05:09] LABS: Hemoglobin A1C 8.1 % (<5.7)
[2023-10-02 05:18] LABS: Percent Iron Saturation 16 % (20-50)
[2023-10-02 05:25] LABS: Alanine Aminotransferase 134 U/L (6-35); Albumin Level 2.8 g/dL (3.5-5.1); Alkaline Phosphatase 233 U/L (38-126); Anion Gap 7 mmol/L (8-16); Aspartate Amino Transferase 61 U/L (14-36); Bilirubin,Total 0.6 mg/dL (0.2-1.3); Blood Urea Nitrogen 20 mg/dL (7-17); Calcium 7.6 mg/dL (8.4-10.2); Carbon Dioxide 27 mmol/L (22-30); Chloride 106 mmol/L (98-107); Estimated CRCL calculation 48 ml/min; Estimated Glomerular Filt Rate 50; Glucose 295 mg/dL (65-110); Platelet Estimate Decreased (Adequate); Potassium 3.7 mmol/L (3.4-5.0); Sodium 140 mmol/L (137-145)
[2023-10-02 05:27] LABS: Anisocytosis 1+ (NORMAL); Hypochromasia 1+ (NORMAL); Large Platelets Present; Ovalocytes 1+ (NORMAL); Poikilocytosis 1+ (NORMAL); Schistocytes None Seen (NORMAL)
[2023-10-02 06:15] LABS: Folic Acid 8.3 ng/mL (2.76->20); Vitamin B12 > 1000.0 pg/mL (239-931)
[2023-10-02 07:47] LABS: Glucose Point of Care 281 mg/dl (65-105)
[2023-10-02] MEDS: ATORVASTATIN 10 MG TABLET PO (09:17)
[2023-10-02] MEDS: PANTOPRAZOLE 40 MG TABLET PO (09:17)
[2023-10-02] MEDS: DOXYCYCLINE HYCLATE 100 MG TABLET PO ×2 (09:17→20:09)
[2023-10-02] MEDS: buPROPion HCL XL (24 HR) 150 MG TABCR 300 MG PO (09:17)
[2023-10-02] MEDS: SOTALOL HCL 80 MG TABLET PO ×2 (09:18→20:11)
[2023-10-02] MEDS: ESCITALOPRAM OXALATE 10 MG TABLET PO (09:18)
[2023-10-02] MEDS: INSULIN ASPART (*BKC) 100 UNITS/ML SUB-Q ×4 (09:19→17:00)
[2023-10-02 11:41] LABS: Glucose Point of Care 295 mg/dl (65-105)
--- NOTE | 2023-10-02 11:51 | PM.IMPN ---
Progress Note: A&P Assessment and Plan (1) Pneumonia: Qualifiers: Lung location: unspecified part of lung Pneumonia type: due to unspecified organism Code(s): J18.9 - Pneumonia, unspecified organism Status: Acute Assessment and Plan: 09/28 started ceftriaxone and azithromycin 10/01 use doxycycline instead of azithromycin due to interaction with escitalopram and anti arrhythmics (2) Atrial fibrillation: Qualifiers: Atrial fibrillation type: paroxysmal Qualified Code(s): I48.0 - Paroxysmal atrial fibrillation Code(s): I48.91 - Unspecified atrial fibrillation Status: Acute Assessment and Plan: Continue home sotalol and ASA (no anticoagulation due to hx intracranial bleed) and pt has declined LAAO in past 10/01 diltiazem drip begun during the night due to AFib with RVR and now in sinus rhythm with Mobitz 2 block on 12 lead EKG, QTC WNL 10/02 off diltiazem drip early AM and HR increased, so added PO metoprolol (3) Diabetes: Qualifiers: Diabetes mellitus type: type 2 Diabetes mellitus mcfp insulin use: without superintendent terminal use Diabetes mellitus complication status: with hyperglycemia Qualified Code(s): E11.65 - Type 2 diabetes mellitus with hyperglycemia Code(s): E11.9 - Type 2 diabetes mellitus without complications Status: Acute Assessment and Plan: Was on metformin at home 10/01 blood sugars running 200-300 since admission so added basal and sliding scale insulin 10/02 FBS 295, so increased basal insulin and added pre-meal insulin. A1c 8.1%. (4) Hypoxia: Code(s): R09.02 - Hypoxemia Status: Acute Assessment and Plan: 10/01 off oxygen (5) Influenza A: Code(s): J10.1 - Influenza due to other identified influenza virus with other respiratory manifestations Status: Acute Assessment and Plan: Continue symptomatic treatment Bronchodilators Cough suppressant p.r.n. (6) ARLYN (acute kidney injury): Code(s): N17.9 - Acute kidney failure, unspecified Status: Acute Assessment and Plan: Creatinine 2.6 on 09/27, 1.2 on 10/01 (at baseline), 10/02 1.1 F/u lab (7) Anemia: Code(s): D64.9 - Anemia, unspecified Status: Acute Assessment and Plan: 1/16 hgb 12.1, 10/01 9.4, 10/02 9.1 Iron studies with low sat at 16%, but iron 44, TIBC 272 Stool for occult blood negative F/u lab (8) Thrombocytopenia: Code(s): D69.6 - Thrombocytopenia, unspecified Status: Acute Assessment and Plan: 09/27 plt 213k, 10/01 147k, 10/02 143k F/u lab (9) Chronic GERD: Code(s): K21.9 - Gastro-esophageal reflux disease without esophagitis Status: Acute Assessment and Plan: PPI (10) DVT prophylaxis: Code(s): Z29.9 - Encounter for prophylactic measures, unspecified Status: Acute Assessment and Plan: 10/01 SCD's ordered due to hx intracranial bleed, anemia, thrombocytopenia Subjective Date/time seen: 10/02/23 11:51 Interval history: Slept much better last night with codeine cough syrup. Sore throat much better. Appetite improved. Short of breath with exertion. Wheezing. Cough productive of green to brown sputum. Denied fevers or chills. Denied chest pain. Was constipated but had bowel movement this morning. Denied abnormal bleeding. Review of Systems Review of Systems: All systems reviewed & are unremarkable except as noted in HPI and below Exam Narrative: HEENT: PERRL, sclerae nonicteric, pharyngeal mucosa pink and intact NECK: No JVD CHEST: NL effort. Diffuse rhonchi and expiratory wheezes. HEART: NL S1/S2, regularly irregular, no murmur. ABDOMEN: BS+, soft, nontender, no mass, no bruits EXTREMITIES: No cyanosis, edema, or clubbing NEUROLOGIC: CN intact and symmetric to inspection. MUSCULOSKELETAL: Tone and strength symmetric. PSYCH: Alert. Oriented to person, place, and time. Objective Data Vital Signs Vital Signs: Vit
[2023-10-02] MEDS: METOPROLOL TARTRATE 12.5 MG TABLET PO ×2 (12:50→17:00)
[2023-10-02] MEDS: predniSONE 20 MG TABLET 40 MG PO (12:53)
[2023-10-02] MEDS: LEVALBUTEROL NEB 1.25 MG/3 ML 0.63 MG INHALATION ×2 (14:27→20:09)
[2023-10-02 16:39] LABS: Glucose Point of Care 212 mg/dl (65-105)
[2023-10-02] MEDS: SENNOSIDES 8.6 MG TABLET PO (20:10)
[2023-10-02] MEDS: INSULIN GLARGINE (*BKC) 100 UNITS/ML 18 UNITS SUB-Q (20:12)
[2023-10-02 21:20] LABS: Glucose Point of Care 345 mg/dl (65-105)
[2023-10-03] VITALS (32 sets, daily range): BP systolic 146–177; BP diastolic 62–80; PULSE 63–95; RESP 16–24; TEMP 36.3–37.1; O2SAT 92–99
[2023-10-03] MEDS: METOPROLOL TARTRATE 12.5 MG TABLET PO ×4 (00:01→18:25)
[2023-10-03] MEDS: LEVALBUTEROL NEB 1.25 MG/3 ML 0.63 MG INHALATION ×4 (02:13→19:33)
[2023-10-03 04:17] LABS: Basophils Percent Auto 0.4 % (0.2-1.2); Hematocrit 29.4 % (37.0-47.0); Hemoglobin 9.2 g/dL (12.0-15.0); Immature Granulocyte Absolute 0.59 K/mm3 (0.00-0.031); Immature Granulocyte Percent A 8.7 % (0-0.5); Lymphocytes Absolute Auto 0.55 K/mm3 (0.9-3.2); Lymphocytes Percent Auto 8.1 % (18.3-44.2); Mean Corpuscular HGB Conc 31.3 g/dl (32-36); Mean Corpuscular Hemoglobin 28.6 pg (26-34); Mean Corpuscular Volume 91.3 fl (80-100); Mean Platelet Volume 10.5 fl (7.4-10.4); Monocytes Absolute Auto 0.4 K/mm3 (0.1-0.6); Monocytes Percent Auto 6.2 % (2.6-8.5); Neutrophils Absolute Auto 5.2 K/mm3 (1.3-6.7); Neutrophils Percent Auto 76.6 % (45.5-73.1); Platelet Count Result 131 k/mm3 (150-375); Red Blood Count 3.22 M/mm3 (4.2-5.4); Red Cell Distribution Width 13.4 % (11.5-14.5); White Blood Count 6.8 K/mm3 (4.5-10.0)
[2023-10-03 04:40] LABS: Alanine Aminotransferase 101 U/L (6-35); Albumin Level 2.9 g/dL (3.5-5.1); Alkaline Phosphatase 216 U/L (38-126); Anion Gap 8 mmol/L (8-16); Aspartate Amino Transferase 44 U/L (14-36); Bilirubin,Total 0.5 mg/dL (0.2-1.3); Blood Urea Nitrogen 18 mg/dL (7-17); Calcium 7.4 mg/dL (8.4-10.2); Carbon Dioxide 28 mmol/L (22-30); Chloride 103 mmol/L (98-107); Estimated CRCL calculation 53 ml/min; Estimated Glomerular Filt Rate 56; Glucose 321 mg/dL (65-110); Potassium 3.4 mmol/L (3.4-5.0); Sodium 139 mmol/L (137-145)
[2023-10-03 04:51] LABS: Platelet Clumps Present; Platelet Estimate Decreased (Adequate)
[2023-10-03 04:52] LABS: Crenated RBC 1+ (NORMAL); Hypochromasia 1+ (NORMAL); Schistocytes None Seen (NORMAL)
[2023-10-03 08:19] LABS: Glucose Point of Care 281 mg/dl (65-105)
[2023-10-03] MEDS: DOXYCYCLINE HYCLATE 100 MG TABLET PO ×2 (09:33→20:01)
[2023-10-03] MEDS: SOTALOL HCL 80 MG TABLET PO ×2 (09:33→20:01)
[2023-10-03] MEDS: PROMETHAZINE/CODEINE (*CRX) 5 ML SYRUP PO ×2 (09:33→20:04)
[2023-10-03] MEDS: ASPIRIN 81 MG ENTERIC TABLET BY MOUTH (09:34)
[2023-10-03] MEDS: predniSONE 20 MG TABLET 40 MG PO (09:34)
[2023-10-03] MEDS: buPROPion HCL XL (24 HR) 150 MG TABCR 300 MG PO (09:34)
[2023-10-03] MEDS: PANTOPRAZOLE 40 MG TABLET PO (09:34)
[2023-10-03] MEDS: ATORVASTATIN 10 MG TABLET PO (09:34)
[2023-10-03] MEDS: ESCITALOPRAM OXALATE 10 MG TABLET PO (09:35)
[2023-10-03] MEDS: INSULIN ASPART (*BKC) 100 UNITS/ML SUB-Q ×6 (09:35→16:33)
[2023-10-03 12:04] LABS: Glucose Point of Care 283 mg/dl (65-105)
[2023-10-03 16:20] LABS: Glucose Point of Care 296 mg/dl (65-105)
--- NOTE | 2023-10-03 16:31 | PM.IMPN ---
Progress Note: A&P Assessment and Plan (1) Pneumonia: Qualifiers: Lung location: unspecified part of lung Pneumonia type: due to unspecified organism Code(s): J18.9 - Pneumonia, unspecified organism Status: Acute Assessment and Plan: 09/28 started ceftriaxone and azithromycin 10/01 use doxycycline instead of azithromycin due to interaction with escitalopram and anti arrhythmics 10/03/23: On Ceftriaxone, Doxycycline (2) Atrial fibrillation: Qualifiers: Atrial fibrillation type: paroxysmal Qualified Code(s): I48.0 - Paroxysmal atrial fibrillation Code(s): I48.91 - Unspecified atrial fibrillation Status: Acute Assessment and Plan: Continue home sotalol and ASA (no anticoagulation due to hx intracranial bleed) and pt has declined LAAO in past 10/01 diltiazem drip begun during the night due to AFib with RVR and now in sinus rhythm with Mobitz 2 block on 12 lead EKG, QTC WNL 10/02 off diltiazem drip early AM and HR increased, so added PO metoprolol 10/03/23: Will monitor (3) Diabetes: Qualifiers: Diabetes mellitus type: type 2 Diabetes mellitus chcf insulin use: without chcf use Diabetes mellitus complication status: with hyperglycemia Qualified Code(s): E11.65 - Type 2 diabetes mellitus with hyperglycemia Code(s): E11.9 - Type 2 diabetes mellitus without complications Status: Acute Assessment and Plan: Was on metformin at home 10/01 blood sugars running 200-300 since admission so added basal and sliding scale insulin 10/02 FBS 295, so increased basal insulin and added pre-meal insulin. A1c 8.1%. (4) Hypoxia: Code(s): R09.02 - Hypoxemia Status: Acute Assessment and Plan: 10/01 off oxygen (5) Influenza A: Code(s): J10.1 - Influenza due to other identified influenza virus with other respiratory manifestations Status: Acute Assessment and Plan: Continue symptomatic treatment Bronchodilators Cough suppressant p.r.n. (6) ARLYN (acute kidney injury): Code(s): N17.9 - Acute kidney failure, unspecified Status: Acute Assessment and Plan: Creatinine 2.6 on 09/27, 1.2 on 10/01 (at baseline), 10/02 1.1 F/u lab (7) Anemia: Code(s): D64.9 - Anemia, unspecified Status: Acute Assessment and Plan: 09/27 hgb 12.1, 10/01 9.4, 10/02 9.1 Iron studies with low sat at 16%, but iron 44, TIBC 272 Stool for occult blood negative F/u lab (8) Thrombocytopenia: Code(s): D69.6 - Thrombocytopenia, unspecified Status: Acute Assessment and Plan: 09/27 plt 213k, 10/01 147k, 10/02 143k F/u lab (9) Chronic GERD: Code(s): K21.9 - Gastro-esophageal reflux disease without esophagitis Status: Acute Assessment and Plan: PPI (10) DVT prophylaxis: Code(s): Z29.9 - Encounter for prophylactic measures, unspecified Status: Acute Assessment and Plan: 10/01 SCD's ordered due to hx intracranial bleed, anemia, thrombocytopenia Time Spent With Patient Time with patient: 25 - 35 minutes Subjective Date/time seen: 10/03/23 16:31 Interval history: Slept much better last night with codeine cough syrup. Sore throat much better. Appetite improved. Short of breath with exertion. Wheezing. Cough productive of green to brown sputum. Denied fevers or chills. Denied chest pain. Was constipated but had bowel movement this morning. Denied abnormal bleeding. Review of Systems Review of Systems: Shortness of breath, cough All systems reviewed & are unremarkable except as noted in HPI and below Constitutional: Constitutional: Reports no additional constitutional complaints, Reports chills, Denies fatigue, Reports malaise, Reports poor appetite and Reports weakness Eyes: Eyes: Denies change in vision ENT: Reports system reviewed and no additional complaints, except as documented, Denies dysphagia and Denies odynophagia Cardiovascular: Cardi
[2023-10-03] MEDS: SENNOSIDES 8.6 MG TABLET PO (20:01)
[2023-10-03] MEDS: INSULIN GLARGINE (*BKC) 100 UNITS/ML 18 UNITS SUB-Q (20:01)
[2023-10-03 20:52] LABS: Glucose Point of Care 441 mg/dl (65-105)
[2023-10-03 21:14] LABS: Glucose Point of Care 437 mg/dl (65-105)
[2023-10-03] MEDS: INSULIN ASPART (*BKC) 100 UNITS/ML 12 UNITS SUB-Q (21:35)
[2023-10-04] VITALS (26 sets, daily range): BP systolic 142–158; BP diastolic 53–78; PULSE 53–145; RESP 16–22; TEMP 35.6–36.8; O2SAT 91–100
[2023-10-04] MEDS: METOPROLOL TARTRATE 12.5 MG TABLET PO ×5 (00:13→23:35)
[2023-10-04] MEDS: INSULIN ASPART (*BKC) 100 UNITS/ML 6 UNITS SUB-Q (00:17)
--- NOTE | 2023-10-04 00:24 | ECG_ITS ---
Measurements Intervals [place] Rate: 135 P: WI: 0 QRS: -11 QRSD: 97 T: 10 QT: 342 QTc: 513 Interpretive Statements ATRIAL FIBRILLATION WITH RAPID VENTRICULAR RESPONSE POOR R WAVE PROGRESSION, ANTERIOR LEADS NONSPECIFIC ST & T-WAVE ABNORMALITY- DIFFUSE LEADS BASELINE ARTIFACT- V1-V3 ABNORMAL ECG COMPARED TO ECG 10/02/2023 03:16:41 ATRIAL FIBRILLATION NOW PRESENT ST-T WAVE ABNORMALITY NOW PRESENT Electronically Signed On 10-04-2023 6:46:57 SENIOR LOAN PROCESSOR by Buzz Escobedo D.O.
[2023-10-04 00:27] LABS: Glucose Point of Care 333 mg/dl (65-105)
[2023-10-04 00:54] LABS: Anion Gap 9 mmol/L (8-16); Blood Urea Nitrogen 22 mg/dL (7-17); Calcium 7.8 mg/dL (8.4-10.2); Carbon Dioxide 28 mmol/L (22-30); Chloride 100 mmol/L (98-107); Estimated CRCL calculation 48 ml/min; Estimated Glomerular Filt Rate 50; Glucose 292 mg/dL (65-110); Magnesium 1.1 mg/dL (1.6-2.3); Potassium 3.3 mmol/L (3.4-5.0); Sodium 137 mmol/L (137-145)
[2023-10-04] MEDS: LEVALBUTEROL NEB 1.25 MG/3 ML 0.63 MG INHALATION ×4 (01:02→19:42)
[2023-10-04] MEDS: POTASSIUM CHLORIDE 20 MEQ ER TABLET 60 MEQ PO (01:53)
[2023-10-04] MEDS: MAGNESIUM SULF 4 GM/WATER100ML 4 GM/100 ML BAG IVPB (01:54)
[2023-10-04] MEDS: ESCITALOPRAM OXALATE 10 MG TABLET PO (08:07)
[2023-10-04] MEDS: PANTOPRAZOLE 40 MG TABLET PO (08:07)
[2023-10-04] MEDS: ATORVASTATIN 10 MG TABLET PO (08:07)
[2023-10-04] MEDS: INSULIN ASPART (*BKC) 100 UNITS/ML SUB-Q ×5 (08:07→16:46)
[2023-10-04] MEDS: SOTALOL HCL 80 MG TABLET PO ×2 (08:07→20:41)
[2023-10-04] MEDS: predniSONE 20 MG TABLET 40 MG PO (08:07)
[2023-10-04] MEDS: DOXYCYCLINE HYCLATE 100 MG TABLET PO ×2 (08:07→20:42)
[2023-10-04] MEDS: buPROPion HCL XL (24 HR) 150 MG TABCR 300 MG PO (08:07)
[2023-10-04 08:13] LABS: Hematocrit 33.4 % (37.0-47.0); Hemoglobin 10.4 g/dL (12.0-15.0); Mean Corpuscular HGB Conc 31.1 g/dl (32-36); Mean Corpuscular Hemoglobin 28.4 pg (26-34); Mean Corpuscular Volume 91.3 fl (80-100); Mean Platelet Volume 10.3 fl (7.4-10.4); Platelet Count Result 227 k/mm3 (150-375); Red Blood Count 3.66 M/mm3 (4.2-5.4); Red Cell Distribution Width 13.7 % (11.5-14.5); White Blood Count 14.6 K/mm3 (4.5-10.0)
[2023-10-04 08:15] LABS: Alanine Aminotransferase 89 U/L (6-35); Albumin Level 3.2 g/dL (3.5-5.1); Alkaline Phosphatase 198 U/L (38-126); Anion Gap 7 mmol/L (8-16); Aspartate Amino Transferase 53 U/L (14-36); Bilirubin,Total 0.7 mg/dL (0.2-1.3); Blood Urea Nitrogen 20 mg/dL (7-17); Calcium 7.7 mg/dL (8.4-10.2); Carbon Dioxide 30 mmol/L (22-30); Chloride 102 mmol/L (98-107); Estimated CRCL calculation 53 ml/min; Estimated Glomerular Filt Rate 56; Glucose 184 mg/dL (65-110); Potassium 4.4 mmol/L (3.4-5.0); Sodium 139 mmol/L (137-145)
[2023-10-04 08:23] LABS: Glucose Point of Care 176 mg/dl (65-105)
[2023-10-04 08:54] LABS: Band Neutrophils Percent 6 % (0-6); Lymphocytes Absolute Manual 1.46 K/mm3 (1.1-4.5); Metamyelocytes Percent 2 %; Monocytes Absolute Manual 0.43 K/mm3 (0.1-0.90); Monocytes Percent Manual 3 % (3-9); Neutrophils Absolute Manual 12.41 K/mm3 (1.7-7.2); Neutrophils Percent Manual 79 % (46-73); Platelet Estimate Adequate (Adequate); Schistocytes None Seen (NORMAL); Total Cells Counted 100
[2023-10-04 08:56] LABS: Anisocytosis 1+ (NORMAL); Hypochromasia 1+ (NORMAL); Macrocytosis 1+ (NORMAL)
[2023-10-04 11:56] LABS: Glucose Point of Care 232 mg/dl (65-105)
--- NOTE | 2023-10-04 15:10 | PM.IMPN ---
Progress Note: A&P Assessment and Plan (1) Pneumonia: Qualifiers: Lung location: unspecified part of lung Pneumonia type: due to unspecified organism Code(s): J18.9 - Pneumonia, unspecified organism Status: Acute Assessment and Plan: 09/28 started ceftriaxone and azithromycin 10/01 use doxycycline instead of azithromycin due to interaction with escitalopram and anti arrhythmics 10/03/23: On Ceftriaxone, Doxycycline 10/04/23: Will likely DC tomorrow on Augmentin; (2) Atrial fibrillation: Qualifiers: Atrial fibrillation type: paroxysmal Qualified Code(s): I48.0 - Paroxysmal atrial fibrillation Code(s): I48.91 - Unspecified atrial fibrillation Status: Acute Assessment and Plan: Continue home sotalol and ASA (no anticoagulation due to hx intracranial bleed) and pt has declined LAAO in past 10/01 diltiazem drip begun during the night due to AFib with RVR and now in sinus rhythm with Mobitz 2 block on 12 lead EKG, QTC WNL 10/02 off diltiazem drip early AM and HR increased, so added PO metoprolol 10/03/23: Will monitor (3) Diabetes: Qualifiers: Diabetes mellitus type: type 2 Diabetes mellitus residential insulin use: without residential use Diabetes mellitus complication status: with hyperglycemia Qualified Code(s): E11.65 - Type 2 diabetes mellitus with hyperglycemia Code(s): E11.9 - Type 2 diabetes mellitus without complications Status: Acute Assessment and Plan: Was on metformin at home 10/01 blood sugars running 200-300 since admission so added basal and sliding scale insulin 10/02 FBS 295, so increased basal insulin and added pre-meal insulin. A1c 8.1%. (4) Hypoxia: Code(s): R09.02 - Hypoxemia Status: Acute Assessment and Plan: 10/01 off oxygen (5) Influenza A: Code(s): J10.1 - Influenza due to other identified influenza virus with other respiratory manifestations Status: Acute Assessment and Plan: Continue symptomatic treatment Bronchodilators Cough suppressant p.r.n. (6) ARLYN (acute kidney injury): Code(s): N17.9 - Acute kidney failure, unspecified Status: Acute Assessment and Plan: Creatinine 2.6 on 09/27, 1.2 on 10/01 (at baseline), 10/02 1.1 F/u lab (7) Anemia: Code(s): D64.9 - Anemia, unspecified Status: Acute Assessment and Plan: 09/27 hgb 12.1, 10/01 9.4, 10/02 9.1 Iron studies with low sat at 16%, but iron 44, TIBC 272 Stool for occult blood negative F/u lab (8) Thrombocytopenia: Code(s): D69.6 - Thrombocytopenia, unspecified Status: Acute Assessment and Plan: 09/27 plt 213k, 10/01 147k, 10/02 143k F/u lab (9) Chronic GERD: Code(s): K21.9 - Gastro-esophageal reflux disease without esophagitis Status: Acute Assessment and Plan: PPI (10) DVT prophylaxis: Code(s): Z29.9 - Encounter for prophylactic measures, unspecified Status: Acute Assessment and Plan: 10/01 SCD's ordered due to hx intracranial bleed, anemia, thrombocytopenia Time Spent With Patient Time with patient: 25 - 35 minutes Subjective Date/time seen: 10/04/23 15:10 Interval history: Seen; Asleep comfortably Review of Systems Review of Systems: Shortness of breath, cough All systems reviewed & are unremarkable except as noted in HPI and below Constitutional: Constitutional: Reports no additional constitutional complaints, Reports chills, Denies fatigue, Reports malaise, Reports poor appetite and Reports weakness Eyes: Eyes: Denies change in vision ENT: Reports system reviewed and no additional complaints, except as documented, Denies dysphagia and Denies odynophagia Cardiovascular: Cardiovascular: Reports no additional cardiovascular complaints, Denies chest pain, Denies radiating jaw, neck or arm pain, Denies palpitations and Reports dyspnea Respiratory: Respiratory: Reports chest congestion, Reports cough and Reports dy
[2023-10-04 16:02] LABS: Glucose Point of Care 373 mg/dl (65-105)
[2023-10-04 20:03] LABS: Glucose Point of Care 402 mg/dl (65-105)
[2023-10-04] MEDS: SENNOSIDES 8.6 MG TABLET PO (20:40)
[2023-10-04] MEDS: MELATONIN 5 MG TABLET PO (20:41)
[2023-10-04] MEDS: INSULIN GLARGINE (*BKC) 100 UNITS/ML 18 UNITS SUB-Q (20:43)
[2023-10-04] MEDS: INSULIN ASPART (*BKC) 100 UNITS/ML 15 UNITS SUB-Q (20:45)
[2023-10-05] VITALS (20 sets, daily range): BP systolic 156; BP diastolic 69; PULSE 48–98; RESP 18–20; TEMP 35.9; O2SAT 88–97
[2023-10-05 00:13] LABS: Glucose Point of Care 212 mg/dl (65-105)
[2023-10-05] MEDS: LEVALBUTEROL NEB 1.25 MG/3 ML 0.63 MG INHALATION ×3 (01:01→13:31)
[2023-10-05 05:10] LABS: Basophils Percent Auto 0.1 % (0.2-1.2); Eosinophils Absolute Auto 0.1 K/mm3 (0-0.3); Eosinophils Percent Auto 0.5 % (0-4.4); Hematocrit 30.6 % (37.0-47.0); Hemoglobin 9.7 g/dL (12.0-15.0); Immature Granulocyte Absolute 0.44 K/mm3 (0.00-0.031); Immature Granulocyte Percent A 4.8 % (0-0.5); Lymphocytes Percent Auto 16.3 % (18.3-44.2); Mean Corpuscular HGB Conc 31.7 g/dl (32-36); Mean Corpuscular Hemoglobin 28.4 pg (26-34); Mean Corpuscular Volume 89.7 fl (80-100); Mean Platelet Volume 10.2 fl (7.4-10.4); Monocytes Absolute Auto 0.7 K/mm3 (0.1-0.6); Monocytes Percent Auto 7.5 % (2.6-8.5); Neutrophils Absolute Auto 6.5 K/mm3 (1.3-6.7); Neutrophils Percent Auto 70.8 % (45.5-73.1); Platelet Count Result 189 k/mm3 (150-375); Red Blood Count 3.41 M/mm3 (4.2-5.4); Red Cell Distribution Width 13.7 % (11.5-14.5); White Blood Count 9.2 K/mm3 (4.5-10.0)
[2023-10-05 05:25] LABS: Alanine Aminotransferase 86 U/L (6-35); Alkaline Phosphatase 177 U/L (38-126); Anion Gap 5 mmol/L (8-16); Aspartate Amino Transferase 57 U/L (14-36); Bilirubin,Total 0.4 mg/dL (0.2-1.3); Blood Urea Nitrogen 21 mg/dL (7-17); Calcium 7.8 mg/dL (8.4-10.2); Carbon Dioxide 33 mmol/L (22-30); Chloride 102 mmol/L (98-107); Estimated CRCL calculation 53 ml/min; Estimated Glomerular Filt Rate 56; Glucose 165 mg/dL (65-110); Potassium 3.3 mmol/L (3.4-5.0); Sodium 140 mmol/L (137-145)
[2023-10-05 08:28] LABS: Glucose Point of Care 107 mg/dl (65-105)
[2023-10-05] MEDS: PANTOPRAZOLE 40 MG TABLET PO (08:56)
[2023-10-05] MEDS: ATORVASTATIN 10 MG TABLET PO (08:56)
[2023-10-05] MEDS: buPROPion HCL XL (24 HR) 150 MG TABCR 300 MG PO (08:56)
[2023-10-05] MEDS: ESCITALOPRAM OXALATE 10 MG TABLET PO (08:56)
[2023-10-05] MEDS: SOTALOL HCL 80 MG TABLET PO (08:56)
[2023-10-05] MEDS: predniSONE 20 MG TABLET 40 MG PO (08:56)
[2023-10-05] MEDS: DOXYCYCLINE HYCLATE 100 MG TABLET PO (08:56)
[2023-10-05] MEDS: ASPIRIN 81 MG ENTERIC TABLET BY MOUTH (09:00)
[2023-10-05] MEDS: INSULIN ASPART (*BKC) 100 UNITS/ML SUB-Q ×4 (09:00→16:44)
[2023-10-05] MEDS: POTASSIUM CHLORIDE 20 MEQ ER TABLET 60 MEQ PO (09:00)
--- NOTE | 2023-10-05 10:01 | PCNWS ---
Weekly nutritional screen. Patient is tolerating current Diabetic diet with adequate intake 75-100%. No weight loss reported. No nutritional needs at this time.
--- NOTE | 2023-10-05 11:22 | HOMEO2EVAL ---
Evaluation was performed at [facility] Home Oxygen Evaluation RC: Home Oxygen (O2) Evaluation Start: 10/05/23 10:07 Freq: ONCE Status: Active Protocol: RPE Activity Type Activity Date Activity User E-sign Co-sign Detail Recorded Client Recorded Date Recorded By Document 10/05/23 10:30 [email or web address] [email or web address] 10/05/23 11:22 DJO Document 10/05/23 10:35 [email or web address] [email or web address] 10/05/23 11:22 DJO Document 10/05/23 10:40 [email or web address] [email or web address] 10/05/23 11:22 DJO Document 10/05/23 10:45 [email or web address] [email or web address] 10/05/23 11:22 DJO Document 10/05/23 10:55 [email or web address] [email or web address] 10/05/23 11:22 DJO 10/05/23 10/05/23 10/05/23 10:30 10:35 10:40 Home O2 Evaluation [Oxygen] -Test Phase Resting Resting Exercise -Oxygen Delivery Room Air Nasal Cannula Nasal Cannula -Oxygen Flow Rate (L/min) 1 1 [Pulse Oximetry] -Pulse Oximetry (90-100 %) 88 L 90 88 L [Pulse Rate] -Pulse Rate (60-100 beats/min) 64 63 82 [Evaluation] -Activity Tolerance [Charges] -Evaluation Charges O2 Evaluation by Pulmonary 10/05/23 10/05/23 10:45 10:55 Home O2 Evaluation [Oxygen] -Test Phase Exercise Resting -Oxygen Delivery Nasal Cannula Nasal Cannula -Oxygen Flow Rate (L/min) 2 1 [Pulse Oximetry] -Pulse Oximetry (90-100 %) 91 90 [Pulse Rate] -Pulse Rate (60-100 beats/min) 83 65 [Evaluation] -Activity Tolerance Good [Charges] -Evaluation Charges
[2023-10-05 11:50] LABS: Glucose Point of Care 189 mg/dl (65-105)
[2023-10-05] MEDS: METOPROLOL TARTRATE 12.5 MG TABLET PO (11:57)
--- NOTE | 2023-10-05 15:18 | PM.DS ---
DS: Admitting Diagnosis Discharge Date 10/05/23 Admitting Diagnosis Shortness of breath Influenza A infection Community acquired pneumonia DS: Discharge Diagnosis Discharge Diagnosis Plan Assessment and Plan (1) Pneumonia: ?Qualifiers: ?Lung location:?unspecified part of lung??Pneumonia type:?due to unspecified organism ?Code(s): J18.9 - Pneumonia, unspecified organism ?Status:?Acute ?Assessment and Plan: 09/28 started ceftriaxone and azithromycin 10/01 use doxycycline instead of azithromycin due to interaction with escitalopram and anti arrhythmics 10/03/23: On Ceftriaxone, Doxycycline (2) Atrial fibrillation: ?Qualifiers: ?Atrial fibrillation type:?paroxysmal? Qualified Code(s):?I48.0 - Paroxysmal atrial fibrillation ?Code(s): I48.91 - Unspecified atrial fibrillation ?Status:?Acute ?Assessment and Plan: Continue home sotalol and ASA (no anticoagulation due to hx intracranial bleed) and pt has declined LAAO in past 10/01 diltiazem drip begun during the night due to AFib with RVR and now in sinus rhythm with Mobitz 2 block on 12 lead EKG, QTC WNL 10/02 off diltiazem drip early AM and HR increased, so added PO metoprolol 10/03/23: Will monitor (3) Diabetes: ?Qualifiers: ?Diabetes mellitus type:?type 2??Diabetes mellitus senior living insulin use:?without terminal operations supervisor use??Diabetes mellitus complication status:?with hyperglycemia? Qualified Code(s):?E11.65 - Type 2 diabetes mellitus with hyperglycemia ?Code(s): E11.9 - Type 2 diabetes mellitus without complications ?Status:?Acute ?Assessment and Plan: Was on metformin at home 10/01 blood sugars running 200-300 since admission so added basal and sliding scale insulin 10/02 FBS 295, so increased basal insulin and added pre-meal insulin. A1c 8.1%. 10/05/23: Was bradycardic this AM, Metoprolol was held; will DC on home Sotalol and advise to pursue f/u with PCP (4) Hypoxia: ?Code(s): R09.02 - Hypoxemia ?Status:?Acute ?Assessment and Plan: 10/01 off oxygen 10/05/23: Will perform home oxygen eval and DC on oxygen if needed (5) Influenza A: ?Code(s): J10.1 - Influenza due to other identified influenza virus with other respiratory manifestations ?Status:?Acute ?Assessment and Plan: Continue symptomatic treatment Bronchodilators Cough suppressant p.r.n. 10/05/23: DC on Anti-tussives (6) ARLYN (acute kidney injury): ?Code(s): N17.9 - Acute kidney failure, unspecified ?Status:?Acute ?Assessment and Plan: Creatinine 2.6 on 09/27, 1.2 on 10/01 (at baseline), 10/02 1.1 F/u lab (7) Anemia: ?Code(s): D64.9 - Anemia, unspecified ?Status:?Acute ?Assessment and Plan: 09/27 hgb 12.1, 10/01 9.4, 10/02 9.1 Iron studies with low sat at 16%, but iron 44, TIBC 272 Stool for occult blood negative F/u lab (8) Thrombocytopenia: ?Code(s): D69.6 - Thrombocytopenia, unspecified ?Status:?Acute ?Assessment and Plan: 09/27 plt 213k, 10/01 147k, 10/02 143k F/u lab (9) Chronic GERD: ?Code(s): K21.9 - Gastro-esophageal reflux disease without esophagitis ?Status:?Acute ?Assessment and Plan: PPI (10) DVT prophylaxis: ?Code(s): Z29.9 - Encounter for prophylactic measures, unspecified ?Status:?Acute ?Assessment and Plan: 10/01 SCD's ordered due to hx intracranial bleed, anemia, thrombocytopenia DS: Summary Hospital Course Reason for hospitalization: Acute hypoxic respiratory failure Hospital Course: Chief Complaint: Shortness of breath Narrative: This is a 62-year-old female past medical history significant for type 2 diabetes mellitus, chronic GERD, an Allis anxiety disorder with depression, hypertension, dyslipidemia.? Patient presents to the emergency room with shortness of breath, in emergency room patient was found to have low pulse ox in the 88 % range require supplemental oxygen.? Patient has had poor oral intake, poor appetite, ch
[2023-10-05 15:39] LABS: Glucose Point of Care 349 mg/dl (65-105)
== END 2023-10-05 18:00 | disposition home health service (06) | DRG 193 ==
LOC: ANHED 20:09 → ANH3MEDSUR 21:49 → ANHIMU 09-28 05:35
PROVIDERS: Internal Medicine; Admitting Provider Internal Medicine; Emergency Provider Emergency Medicine; PCP Internal Medicine; Visit Provider Internal Medicine
DX: J18.9 Pneumonia, unspecified organism (principal); J96.01 Acute respiratory failure with hypoxia; F33.9 Major depressive disorder, recurrent, unspecified; N17.9 Acute kidney failure, unspecified; J10.1 Influenza due to other identified influenza virus with other respiratory manifestations; D64.9 Anemia, unspecified; D69.6 Thrombocytopenia, unspecified; E11.65 Type 2 diabetes mellitus with hyperglycemia; E78.5 Hyperlipidemia, unspecified; F41.9 Anxiety disorder, unspecified; I10 Essential (primary) hypertension; I48.0 Paroxysmal atrial fibrillation; K21.9 Gastro-esophageal reflux disease without esophagitis; Z90.49 Acquired absence of other specified parts of digestive tract; Z79.82 Long term (current) use of aspirin; Z79.84 Long term (current) use of oral hypoglycemic drugs; Z20.822 Contact with and (suspected) exposure to COVID-19
CPT/HCPCS: 36415; 36600; 71045; 80048; 80053; 81001; 82274; 82375; 82607; 82746; 82805; 82948; 83036; 83050; 83540; 83550; 83605; 83735; 85025; 85610; 87040; 87086; 87637; 93005; 94618; 94640; 96361; 96365; 96367; 96375; 96376; 97110; 97116; 97161; 97165; 97530; 97535; 99285; A9270; G0378; J0456; J0696; J1815; J2060; J2270; J3475; J7030; J7512